=== PATIENT | male | born 1975 | race Caucasian/White ===

== ENCOUNTER 2019-01-01 13:49 | Inpatient (IN) | payer BC ==
--- NOTE | 2019-01-01 15:53 | RAD ---
Date of service: 01/01/2019 HISTORY: Sepsis Patient COMPARISON: No prior. FINDINGS: LUNGS: No active pulmonary disease. PLEURA: No significant pleural effusion identified, no pneumothorax apparent. CARDIOVASCULAR: No aortic atherosclerotic calcification present. Normal cardiac size. No pulmonary vascular congestion. OSSEOUS STRUCTURES: No significant abnormalities. VISUALIZED UPPER ABDOMEN: Normal. OTHER FINDINGS: None. IMPRESSION: No active disease.
[2019-01-01 16:04] LABS: BASO # 0.1 K/uL (0.0-0.2); BASO % 0.8 % (0.0-2.0); EOS % 0.1 % (0.0-4.0); HEMOGLOBIN 13.5 g/dL (12.0-18.0); LYMPH # 1.3 K/uL (1.0-4.3); MEAN CELL VOLUME 78.8 fl (80.0-94.0); MEAN CORPUSCULAR HEMOGLOBIN 25.4 pg (27.0-31.0); MEAN CORPUSCULAR HGB CONC 32.3 g/dL (33.0-37.0); MEAN PLATELET VOLUME 9.7 fl (7.2-11.7); MONO # 0.8 K/uL (0.0-0.8); MONO % 9.9 % (0.0-10.0); NEUT # 5.7 K/uL (1.8-7.0); NEUT % 72.2 % (50.0-75.0); NRBC % 0.3 % (0.0-0.0); RBC 5.32 Mil/uL (4.40-5.90); RED CELL DISTRIBUTION WIDTH 13.5 % (11.5-14.5); WHITE BLOOD COUNT 7.9 K/uL (4.8-10.8)
[2019-01-01 16:22] LABS: VENOUS BLOOD GAS BASE EXCESS 0.2 mmol/L (0.0-2.0); VENOUS BLOOD GAS PCO2 45 mmHg (40-60); VENOUS BLOOD GAS PO2 20 mm/Hg (30-55); VENOUS BLOOD PH 7.37 (7.32-7.43)
[2019-01-01 16:22] LABS: ALB/GLOB RATIO 0.9 (1.0-2.1); ALBUMIN 3.8 g/dL (3.5-5.0); ALT/SGPT 41 U/L (21-72); AST/SGOT 42 U/L (17-59); BLOOD UREA NITROGEN 17 mg/dl (9-20); GFR NON-AFRICAN AMERICAN > 60
[2019-01-01] MEDS ORDERED: cefTRIAXone (Rocephin) 1 gm Inj ONE (16:24)
[2019-01-01] MEDS ORDERED: Sodium Chloride 0.9% 1,000 ML IV STA ×2 (16:31→18:10)
[2019-01-01 16:32] LABS: INR 1.2
[2019-01-01 16:34] LABS: PARTIAL THROMBOPLASTIN TIME 33.4 Seconds (25.6-37.1)
--- NOTE | 2019-01-01 17:18 | ED PDOC ---
HPI: Abdomen Time Seen by Provider: 01/01/19 14:36 Chief Complaint (Nursing): Chest Pain Chief Complaint (Provider): Right flank pain and fever History/Exam Limitations: no limitations Onset/Duration Of Symptoms: Days (x6) Current Symptoms Are (Timing): Still Present Associated Symptoms: Fever Additional Complaint(s): 43 year old male, with a past medical history of kidney stones, presents to the ED with right flank pain and fever since Friday. Patient went to [facility] and found to have a kidney stone and possible UTI. Patient was discharged but developed a fever and felt worse. He had gone back to [facility] where they repeated tests and sent him home with the same diagnosis. Patient was also found to have elevated glucose levels and was started on Ibuprofen, Metformin, and Flomax. Patient did not improve so he went to Dr. Abdi who advised him to come to the ER. Patient now reports generalized malaise, fatigue, persistent right flank pain, fever, nausea, and poor appetite. PMD: Ashwin Colon Past Medical History Reviewed: Historical Data, Nursing Documentation, Vital Signs Vital Signs: Last Vital Signs Temp 102.9 F H 01/01/19 16:34 Pulse 116 H 01/01/19 16:19 Resp 12 01/01/19 16:19 BP 122/69 01/01/19 14:15 Pulse Ox 96 01/01/19 16:19 - Medical History PMH: Kidney Stones - Surgical History Surgical History: No Surg Hx - Family History Family History: States: Unknown Family Hx - Social History Current smoker - smoking cessation education provided: No - Home Medications Home Medications: Ambulatory Orders Medication Instructions Recorded RX: Ibuprofen [Motrin Tab] 800 mg PO Q8 PRN 01/01/19 RX: metFORMIN [glucOPHAGE] 500 mg PO BID 01/01/19 Tamsulosin [Flomax] 0.4 mg PO DAILY 01/01/19 - Allergies Allergies/Adverse Reactions: Allergies Allergy/AdvReac Type Severity Reaction Status Date / Time No Known Allergies Allergy Verified 01/01/19 14:14 Review of Systems ROS Statement: Except As Marked, All Systems Reviewed And Found Negative Constitutional: Positive for: Fever, Weakness, Malaise Gastrointestinal: Positive for: Nausea, Abdominal Pain (right flank pain) Physical Exam - Reviewed Nursing Documentation Reviewed: Yes Vital Signs Reviewed: Yes - Physical Exam Appears: Positive for: In Acute Distress (Tired appearing) Head Exam: Positive for: ATRAUMATIC, NORMOCEPHALIC Skin: Positive for: Warm, Diaphoresis Eye Exam: Positive for: EOMI, PERRL ENT: Positive for: Other (Tacky mucous membranes) Neck: Positive for: Painless ROM, Supple Cardiovascular/Chest: Positive for: Regular Rate, Rhythm (Regular rhythm), Tachycardia Respiratory: Positive for: Normal Breath Sounds, Respiratory Distress (tachypna). Negative for: Rales, Rhonchi, Wheezing Gastrointestinal/Abdominal: Positive for: Normal Exam, Soft. Negative for: Tenderness Back: Positive for: R CVA Tenderness. Negative for: Vertebral Tenderness Extremity: Positive for: Normal ROM. Negative for: Deformity Lymphatic: Negative for: Adenopathy Neurologic/Psych: Positive for: Alert. Negative for: Motor/Sensory Deficits Comments: Febrile - Laboratory Results Result Diagrams: 01/02/19 12:13 01/02/19 05:30 Lab Results: pO2 20 mm/Hg (30-55) L 01/01/19 15:27 VBG pH 7.37 (7.32-7.43) 01/01/19 15:27 VBG pCO2 45 mmHg (40-60) 01/01/19 15:27 VBG HCO3 23.5 mmol/L 01/01/19 15:27 VBG Total CO2 27.4 mmol/L (22-28) 01/01/19 15:27 VBG O2 Sat (Calc) 51.3 % (40-65) 01/01/19 15:27 VBG Base Excess 0.2 mmol/L (0.0-2.0) 01/01/19 15:27 VBG Potassium 3.9 mmol/L (3.6-5.2) 01/01/19 15:27 Sodium 131.0 mmol/L (132-148) L 01/01/19 15:27 Chloride 98.0 mmol/L (98-107) 01/01/19 15:27 Glucose 300 mg/dL (75-110) H 01/01/19 15:27 Lactate 1.3 mmol/L (0.7-2.1) 01/01/19 15:27 FiO2 21.0 % 01/01/19 15:27 PT 14.0 Seconds (9.8-13.1) H 01/01/19 15:40 INR 1.2 01/01/19 15:40 APTT 33.4 Seconds (25.6-37.1) 01/01/19 15:40 Total Bilirubin 0.6 mg/dl (0.2-1.3) 01/01/19 15:40 AST 42 U/L (17-59) 01/01/19 15:40 ALT 41 U/L (21-72) 01/01/19 15:40 Alkaline Phosphatase 114 U/L (38-126) 01/01/19 15:40 Total Protein 7.8 G/DL (6.3-8.2) 01/01/19 15:40 Albumin 3.8 g/dL (3.5-5.0) 01/01/19 15:40 Globulin 4.0 gm/dL (2.2-3.9) H 01/01/19 15:40 Albumin/Globulin Ratio 0.9 (1.0-2.1) L 01/01/19 15:40 - ECG O2 Sat by Pulse Oximetry: 96 (RA) Pulse Ox Interpretation: Normal Medical Decision Making Medical Decision Making: Initial Impression: pyelonephritis, kidney stones, and sepsis Initial Plan: --VBG --ECG --CMP --Magnesium stat --Phosphorous stat --CBC --PTT --Prothrombin time --Sodium chloride 1000mL IV --Rocephin 1gm IV --Toradol 15mg IV --Tylenol 975mg PO --Blood culture --Urine culture --Urinalysis Reviewed papers from [facility] visit. Patient had right hydronephrosis on US and findings of UTI. Labs with no significant abnormalities. However, due to tachycardia and fever, pt to be hospitalized for sepsis. SADIQ Abdi PMD. Requests Ddimer and Jose for Urology and ID consult. Ddimer elevated CTA ordered Name: LEVI ARRINGTON Exam Date: Jan 01, 2019 8:25:05 PM EST Modality Type: CT\SR Description: CTA CHEST Gender: M Laterality: Not applicable : 75 Referring Physician: Emergency Room direct number EXAM: CTA Chest with Intravenous Contrast for Pulmonary Embolism CLINICAL HISTORY: SOB r/o PE TECHNIQUE: Axial CTA images of the chest with intravenous contrast using a pulmonary embolism protocol. Reconstructed images were created and reviewed. 359.50 mGy-cm CONTRAST: With; [id number] was administered without incident. COMPARISON: None provided. FINDINGS: PULMONARY ARTERIES No evidence of central or segmental pulmonary embolism is seen. AORTA There is no evidence for aneurysm or dissection of the thoracic aorta. LUNGS Subtle airspace opacity is seen in the posterior right mid-lower thorax thought consistent with pneumonic consolidation. PLEURAL SPACES No pneumothorax evident. No pleural effusions. HEART Normal heart size. No pericardial effusion. LYMPH NODES No lymphadenopathy is evident. BONES No focal osseous abnormality or acute fracture. UPPER ABDOMEN Images of the upper abdomen demonstrate marked hepatomegaly. The liver measured approximately 24.7 cm in the midclavicular line. There is also splenomegaly identified. The spleen measured 14.7 x 5.7 cm in longitudinal and transverse dimensions respectively. Portions of the visualized upper right kidney appear to demonstrate some hydronephrosis. Further renal evaluation could be considered. IMPRESSION: 1. No identification of PE. 2. Pneumonic consolidation in the posterior mid-lower right thorax. 3. Possible right hydronephrosis. Further renal evaluation could be considered. 4. Marked hepatomegaly. Measurement is given above. 5. Splenomegaly. Measurement is given above. Electronically signed on Jan 01, 2019 9:28:01 PM EST by: Damon Sanchez M.D., REBECA Certified By [employer] [facility] Fellowship Trained MRI and CT Specialist Scribe Attestation: Documented by Hari Hernandez acting as a scribe for Keisha Reeves MD. Provider Scribe Attestation: All medical record entries made by the Scribe were at my direction and personally dictated by me. I have reviewed the chart and agree that the record accurately reflects my personal performance of the history, physical exam, medical decision making, and the department course for this patient. I have also personally directed, reviewed, and agree with the discharge instructions and disposition. Disposition - Clinical Impression Clinical Impression: Sepsis, Renal colic on right side, Pyelonephritis - Disposition Disposition Time: 20:00 Condition: FAIR - Pt Status Changed To: Hospital Disposition Of: Inpatient - Admit Certification Admit to Inpatient:: After my assessment, the patient will require hospi talization for at least two midnights. This is because of the severity of symptoms shown, intensity of services needed, and/or the medical risk in this patient being treated as an outpatient. - POA Present On Arrival: Poor Glycemic Control
[2019-01-01 17:46] LABS: SQUAMOUS EPITHIAL < 1 /hpf (0-5); URINE BACTERIA RARE (<OCC); URINE BILIRUBIN NEGATIVE (NEGATIVE); URINE BLOOD MODERATE (NEGATIVE); URINE CLARITY CLEAR (Clear); URINE COLOR YELLOW (YELLOW); URINE GLUCOSE (UA) >=500 mg/dL (NEGATIVE); URINE LEUKOCYTE ESTERASE NEG Leu/uL (Negative); URINE PROTEIN 100 mg/dL (NEGATIVE); URINE UROBILINOGEN 0.2-1.0 mg/dL (0.2-1.0)
[2019-01-01] MEDS ORDERED: Iodixanol 320 MG/ML 100 ML BOTTLE IV ONE (19:08)
[2019-01-01] MEDS ORDERED: Sodium Chloride 0.9% 50 ML IV ONE (19:08)
[2019-01-01] MEDS ORDERED: Sodium Chloride 0.45% 1,000 ML IV SCH (22:45)
[2019-01-02 07:46] LABS: ALB/GLOB RATIO 0.9 (1.0-2.1); ALBUMIN 3.3 g/dL (3.5-5.0); ALT/SGPT 39 U/L (21-72); AST/SGOT 39 U/L (17-59); BLOOD UREA NITROGEN 17 mg/dl (9-20); CALCIUM 8.3 mg/dL (8.4-10.2); GFR NON-AFRICAN AMERICAN > 60; HDL CHOLESTEROL 15 MG/DL (30-70)
[2019-01-02 07:57] LABS: LDL CHOLESTEROL 84 mg/dL (0-129)
[2019-01-02] MEDS ORDERED: Enoxaparin 30 mg Syringe SC SCH (09:00)
[2019-01-02] MEDS: Enoxaparin 40 mg Syringe SC SCH (09:55)
--- NOTE | 2019-01-02 09:55 | CT ---
Date of service: 01/01/2019 PROCEDURE: CT Chest with contrast (Pulmonary Angiogram) HISTORY: SOB R/O PE COMPARISON: None available. TECHNIQUE: Axial computed tomography images were obtained of the chest in the pulmonary arterial phase of enhancement. Coronal and sagittal reformatted images were created and reviewed. Intravenous contrast dose: 99 mL Visipaque 320 Radiation dose: Total exam DLP = 359.5 mGy-cm. This CT exam was performed using one or more of the following dose reduction techniques: Automated exposure control, adjustment of the mA and/or kV according to patient size, and/or use of iterative reconstruction technique. FINDINGS: PULMONARY ARTERIES: Unremarkable. No pulmonary embolism. AORTA: No acute findings. No thoracic aortic aneurysm. No aortic atherosclerotic calcification or mural plaque present. LUNGS: Few scattered bilateral patchy infiltrates. PLEURAL SPACES: Unremarkable. No effusion or pneumothorax. HEART: Unremarkable. No cardiomegaly. No significant pericardial effusion. LYMPH NODES: No lymphadenopathy. BONES, CHEST WALL: Unremarkable. No fracture or destructive lesion OTHER FINDINGS: Partially imaged right hydronephrosis. IMPRESSION: Unremarkable CT pulmonary angiogram. No pulmonary embolus. Few scattered patchy bilateral infiltrates. Partially imaged right hydronephrosis. Renal ultrasound or CT scan of the abdomen and pelvis can be obtained for further evaluation as clinically warranted.
--- NOTE | 2019-01-02 11:27 | CP.PCM.CON ---
History of Present Illness - History of Present Illness History of Present Illness: This 43 year old male with nephrolithiasis presented to the emergency room with right sided abdominal pain, fever, hydronephrosis and hyperglycemia, He was initially seen at [facility] with nephrolithiasis and discharged with medication. He returned there with additional hyperglycemia and discharged with medications. He did not improve and was seen by Dr Abdi and sent to the emergency deprtment for further evaluation. He denies any cough or sputum, but CT chest did show an elevated hemidiaphragm with a patchy ground glass infiltrate and subsegmental basal atelectasis in the RLL. He has no prior pulmonary disease by history but is a cigertte smoker (1/2 PPD). Past Patient History - Past Medical History & Family History Past Medical History?: Yes Pertinent Family History: Diabetes, hypertension - Past Social History Smoking Status: Light Smoker < 10 Cigarettes Daily Chewing Tobacco Use: No Cigar Use: No Alcohol: Social Drugs: Denies Home Situation {Lives}: With Family - CARDIAC Hx Cardiac Disorders: No - PULMONARY Hx Respiratory Disorders: No - NEUROLOGICAL Hx Neurological Disorder: No - HEENT Hx HEENT Problems: No - RENAL Hx Chronic Kidney Disease: Yes Hx Kidney Stones: Yes - ENDOCRINE/METABOLIC Hx Diabetes Mellitus Type 2: Yes (recent dx) - HEMATOLOGICAL/ONCOLOGICAL Hx Blood Disorders: No - INTEGUMENTARY Hx Dermatological Problems: No - MUSCULOSKELETAL/RHEUMATOLOGICAL Hx Musculoskeletal Disorders: No Hx Falls: No - GASTROINTESTINAL Hx Gastrointestinal Disorders: No - GENITOURINARY/GYNECOLOGICAL Hx Genitourinary Disorders: No Other/Comment: Nephrolithiasis - PSYCHIATRIC Hx Psychophysiologic Disorder: No Hx Substance Use: No - SURGICAL HISTORY Hx Surgeries: No - ANESTHESIA Hx Anesthesia: No Hx Anesthesia Reactions: No Hx Malignant Hyperthermia: No Has any member of the family had a problem w/ anesthesia?: No Meds Allergies/Adverse Reactions: Allergies Allergy/AdvReac Type Severity Reaction Status Date / Time No Known Allergies Allergy Verified 01/01/19 14:14 - Medications Medications: Current Medications Acetaminophen (Tylenol 325mg Tab) 975 mg PO ONCE PRN PRN Reason: Fever >100.4 F Last Admin: 01/01/19 16:34 Dose: 975 mg Acetaminophen (Tylenol 325mg Tab) 650 mg PO Q6 PRN PRN Reason: Fever >100.4 F Last Admin: 01/02/19 01:34 Dose: 2 mg Enoxaparin Sodium (Lovenox) 40 mg SC DAILY [facility]; Protocol Last Admin: 01/02/19 09:55 Dose: 40 mg Glipizide (Glucotrol) 10 mg PO BIDAC [facility] Sodium Chloride (Sodium Chloride 0.45%) 1,000 mls @ 100 mls/hr IV .Q10H [facility] Stop: 01/04/19 17:00 Cefepime HCl 1 gm/ Sodium (Chloride) 100 mls @ 100 mls/hr IVPB Q12 [facility]; Protocol Insulin Detemir (Levemir) 14 units SC HS [facility] Insulin Human Lispro (Humalog) 0 units SC ACHS [facility]; Protocol Metformin HCl (Glucophage) 500 mg PO BIDWM [facility] Tramadol HCl (Ultram) 50 mg PO TID PRN PRN Reason: Pain, Mild (1-3) Physical Exam - Additional Findings Additional findings: Well nourished, well developed, in no acute distress, comfortably seated in a leelee-chair. Awake, well oriented, cooperative with exam. No dependant edema, no calf tenderness, no cyanosis, no rash or ecchymosis. No palpable lymphadenopathy. Pharynx is pink and moist w/o exudate. Neck is supple and trachea midline, no JVD. No dullness on chest percussion, equal expansion. Breath sounds are well heard bilaterally. No rales, rhonchi, wheezes or bronchial breath sounds. Heart sounds well heard, regular rhythm. Results - Vital Signs Recent Vital Signs: Last Vital Signs Temp 98.5 F 01/02/19 08:25 Pulse 116 H 01/02/19 08:25 Resp 20 01/02/19 08:25 BP 124/65 01/02/19 08:25 Pulse Ox 97 01/02/19 08:25 - Labs Result Diagrams: 01/02/19 12:13 01/03/19 05:30 Labs: Laboratory Results - last 24 hr 01/01/19 01/01/19 01/01/19 15:27 15:40 15:40 WBC 7.9 RBC 5.32 Hgb 13.5 Hct 41.9 MCV 78.8 L MCH 25.4 L MCHC 32.3 L RDW 13.5 Plt Count 187 MPV 9.7 Neut % (Auto) 72.2 Lymph % (Auto) 17.0 L [place] % (Auto) 9.9 Eos % (Auto) 0.1 Baso % (Auto) 0.8 Neut # (Auto) 5.7 Lymph # (Auto) 1.3 Trinity # (Auto) 0.8 Eos # (Auto) 0.0 Baso # (Auto) 0.1 PT INR APTT D-Dimer, Quantitative pO2 20 L VBG pH 7.37 VBG pCO2 45 VBG HCO3 23.5 VBG Total CO2 27.4 VBG O2 Sat (Calc) 51.3 VBG Base Excess 0.2 VBG Potassium 3.9 Sodium 131.0 L 132 Chloride 98.0 90 L Glucose 300 H Lactate 1.3 FiO2 21.0 Potassium 3.6 Carbon Dioxide 26 Anion Gap 20 BUN 17 Creatinine 0.9 Est GFR ( Amer) > 60 Est GFR (Non-Af Amer) > 60 POC Glucose (mg/dL) Random Glucose 291 H Calcium 9.0 Phosphorus 2.7 Magnesium 2.1 Total Bilirubin 0.6 AST 42 ALT 41 Alkaline Phosphatase 114 Total Protein 7.8 Albumin 3.8 Globulin 4.0 H Albumin/Globulin Ratio 0.9 L Triglycerides Cholesterol LDL Cholesterol Direct HDL Cholesterol TSH 3rd Generation Venous Blood Potassium 3.9 Urine Color Urine Clarity Urine pH Ur Specific [place] Urine Protein Urine Glucose (UA) Urine Ketones Urine Blood Urine Nitrate Urine Bilirubin Urine Urobilinogen Ur Leukocyte Esterase Urine RBC (Auto) Urine Microscopic WBC Ur Squamous Epith Cells Urine Bacteria 01/01/19 01/01/19 01/01/19 15:40 15:48 17:34 WBC RBC Hgb Hct MCV MCH MCHC RDW Plt Count MPV Neut % (Auto) Lymph % (Auto) Trinity % (Auto) Eos % (Auto) Baso % (Auto) Neut # (Auto) Lymph # (Auto) Trinity # (Auto) Eos # (Auto) Baso # (Auto) PT 14.0 H INR 1.2 APTT 33.4 D-Dimer, Quantitative pO2 VBG pH VBG pCO2 VBG HCO3 VBG Total CO2 VBG O2 Sat (Calc) VBG Base Excess VBG Potassium Sodium Chloride Glucose Lactate FiO2 Potassium Carbon Dioxide Anion Gap BUN Creatinine Est GFR ( Amer) Est GFR (Non-Af Amer) POC Glucose (mg/dL) 248 H Random Glucose Calcium Phosphorus Magnesium Total Bilirubin AST ALT Alkaline Phosphatase Total Protein Albumin Globulin Albumin/Globulin Ratio Triglycerides Cholesterol LDL Cholesterol Direct HDL Cholesterol TSH 3rd Generation Venous Blood Potassium Urine Color Yellow Urine Clarity Clear Urine pH 6.0 Ur Specific [place] 1.026 Urine Protein 100 Urine Glucose (UA) >=500 Urine Ketones 80 Urine Blood Moderate Urine Nitrate Negative Urine Bilirubin Negative Urine Urobilinogen 0.2-1.0 Ur Leukocyte Esterase Neg Urine RBC (Auto) 1 Urine Microscopic WBC 2 Ur Squamous Epith Cells < 1 Urine Bacteria Rare 01/01/19 01/01/19 01/01/19 18:43 23:56 23:57 WBC RBC Hgb Hct MCV MCH MCHC RDW Plt Count MPV Neut % (Auto) Lymph % (Auto) Trinity % (Auto) Eos % (Auto) Baso % (Auto) Neut # (Auto) Lymph # (Auto) [place] # (Auto) Eos # (Auto) Baso # (Auto) PT INR APTT D-Dimer, Quantitative 688 H pO2 VBG pH VBG pCO2 VBG HCO3 VBG Total CO2 VBG O2 Sat (Calc) VBG Base Excess VBG Potassium Sodium Chloride Glucose Lactate FiO2 Potassium Carbon Dioxide Anion Gap BUN Creatinine Est GFR ( Amer) Est GFR (Non-Af Amer) POC Glucose (mg/dL) 218 H Random Glucose Calcium Phosphorus Magnesium Total Bilirubin AST ALT Alkaline Phosphatase Total Protein Albumin Globulin Albumin/Globulin Ratio Triglycerides Cholesterol LDL Cholesterol Direct HDL Cholesterol TSH 3rd Generation 1.73 Venous Blood Potassium Urine Color Urine Clarity Urine pH Ur Specific [place] Urine Protein Urine Glucose (UA) Urine Ketones Urine Blood Urine Nitrate Urine Bilirubin Urine Urobilinogen Ur Leukocyte Esterase Urine RBC (Auto) Urine Microscopic WBC Ur Squamous Epith Cells Urine Bacteria 01/02/19 01/02/19 05:30 06:12 WBC RBC Hgb Hct MCV MCH MCHC RDW Plt Count MPV Neut % (Auto) Lymph % (Auto) [place] % (Auto) Eos % (Auto) Baso % (Auto) Neut # (Auto) Lymph # (Auto) [place] # (Auto) Eos # (Auto) Baso # (Auto) PT INR APTT D-Dimer, Quantitative pO2 VBG pH VBG pCO2 VBG HCO3 VBG Total CO2 VBG O2 Sat (Calc) VBG Base Excess VBG Potassium Sodium 135 Chloride 95 L Glucose Lactate FiO2 Potassium 3.6 Carbon Dioxide 25 Anion Gap 19 BUN 17 Creatinine 1.1 Est GFR ( Amer) > 60 Est GFR (Non-Af Amer) > 60 POC Glucose (mg/dL) 212 H Random Glucose 269 H Calcium 8.3 L Phosphorus Magnesium Total Bilirubin 0.4 AST 39 ALT 39 Alkaline Phosphatase 109 Total Protein 7.1 Albumin 3.3 L Globulin 3.8 Albumin/Globulin Ratio 0.9 L Triglycerides 502 H Cholesterol 184 LDL Cholesterol Direct 84 HDL Cholesterol 15 L TSH 3rd Generation Venous Blood Potassium Urine Color Urine Clarity Urine pH Ur Specific [place] Urine Protein Urine Glucose (UA) Urine Ketones Urine Blood Urine Nitrate Urine Bilirubin Urine Urobilinogen Ur Leukocyte Esterase Urine RBC (Auto) Urine Microscopic WBC Ur Squamous Epith Cells Urine Bacteria Assessment & Plan (1) Atelectasis Assessment and Plan: Subsegmental right basal collapse likely secondary to elevated hemidiaphragm. Continue present antibiotic therapy, institute incentive spirometry. Encourage OOB with ambulation and deep breathing. Follow up imaging study as needed. Status: Acute Priority: High - Date & Time Date: 01/02/19 Time: 11:25
[2019-01-02] MEDS: Cefepime 1 GM in Sodium Chloride 0.9% 100 ML IVPB SCH ×2 (12:10→21:38)
[2019-01-02] MEDS: Insulin Lispro (humaLOG) 100 Units/ml Inj SC SCH ×3 (12:13→22:38)
[2019-01-02 12:20] LABS: HEMOGLOBIN 12.4 g/dL (12.0-18.0); MEAN CELL VOLUME 79.6 fl (80.0-94.0); MEAN CORPUSCULAR HEMOGLOBIN 25.3 pg (27.0-31.0); MEAN CORPUSCULAR HGB CONC 31.8 g/dL (33.0-37.0); RBC 4.89 Mil/uL (4.40-5.90); RED CELL DISTRIBUTION WIDTH 13.6 % (11.5-14.5); WHITE BLOOD COUNT 7.5 K/uL (4.8-10.8)
--- NOTE | 2019-01-02 16:25 | CON ---
DATE: 01/02/2019 LOCATION: Room 657. SUBJECTIVE: This is a 43-year-old male with known history of nephrolithiasis, presenting here with fever and severe right flank pain and a possible UTI and is now being referred for endocrine evaluation also because of recent onset of uncontrolled type 2 diabetes. PAST MEDICAL HISTORY: History of nephrolithiasis with previous bouts of renal colic, had a recent diagnosis of type 2 diabetes a week ago at the [facility]3] and was sent home from the emergency room on the prescription of metformin given as 500 mg b.i.d. FAMILY HISTORY: Positive for diabetes, hypertension, smokes half a pack a day for some years now, has a supportive family otherwise. REVIEW OF SYSTEMS: Admits to fever, chills and rigors with generalized body weakness and easy fatigability and tiredness with suboptimal energy level. Also admits to episodic bouts of dizziness and lightheadedness, worse in the last few days prior to admission. No chest pains or palpitations but admits to episodic shortness of breath, especially on exertion. His oral intake has been variable with nausea, dyspepsia and vague upper abdominal pain, supervening right flank pain, worsening in intensity over the last week or so prior to admission and worse on the day of admission. He was seen twice at the [facility]3] Emergency Room and was sent home on the aforementioned medications. Also admits to episodic polyuria, nocturia and dysuria as noted. PHYSICAL EXAMINATION: GENERAL: An average-built overweight male, in no apparent distress. VITAL SIGNS: Blood pressure of 140/80, pulse of 110 beats per minute regular, respirations 20, temperature is 102.9. Height is 6 feet 2 inches. Weight is 210 pounds. HEENT: Head: Normocephalic. Eyes: Anicteric with pink conjunctivae. Funduscopy not possible at this time. Ears, nose and throat otherwise normal. NECK: Supple. Thyroid gland is normal in size. No carotid bruits or any cervical adenopathy. CARDIOPULMONARY: Some adynamic precordium. S1, S2 is rapid and regular. LUNGS: Clear to auscultation. ABDOMEN: Flat, soft with positive bowel sounds. EXTREMITIES: No peripheral edema. Pulses are +2 bilaterally. LABORATORY DATA: His chemistry showed initially a BUN of 17, sodium 132, potassium 3.6, chloride 90, CO2 of 26, glucose 291 and creatinine 0.9. His triglyceride levels are 502, cholesterol is 184, HDL of 15 and LDL of 184. TSH is 1.73. His calcium levels have ranged from 8.3 to 9 with an albumin level of 3.3. His glucose values have ranged from 218 to 248 mg/dL. ASSESSMENT: This is a 43-year-old male with uncontrolled and decompensated type 2 insulin-requiring diabetes presenting here with acute renal colic with possible underlying acute pyelonephritis on the background of known history of nephrolithiasis as noted. There is also recent onset of uncontrolled type 2 insulin-requiring diabetes as evaluated and seen initially at the [facility]3] a week ago as noted. PLAN OF MANAGEMENT: We will initiate a combination of basal insulin with Levemir given as 14 units subcu at bedtime daily to start tonight. We will titrate incrementally as indicated to optimize metabolic control. We will add oral hypoglycemic therapy with metformin given as 500 mg b.i.d. and glipizide at 10 mg b.i.d. before meals to start today as ordered. We will initiate the low-dose correction scale using Humalog insulin coverage scale as ordered. We will hold off prandial insulin for now and observe his glycemic fluctuations overnight as noted. A hemoglobin A1c will be done to confirm his prior glycemic control and serial chemistries will be obtained accordingly. In the meantime with the underlying nephrolithiasis would increase the IV hydration with normal saline to be running at 100 mL/hour as ordered. We will initiate diabetic education to include insulin self-administration and home glucose monitoring accordingly. We will follow. Rosenda Farr MD
[2019-01-02] MEDS: Sodium Chloride 0.45% 1,000 ML IV SCH ×2 (21:00→21:37)
--- NOTE | 2019-01-02 21:52 | CARD ---
APPROVED REPORT Date of service: 01/01/2019 EKG Measurement Heart [id number] <Conclusion> Sinus tachycardia Left axis deviation Abnormal ECG
[2019-01-02] MEDS ORDERED: Insulin Detemir 100 Units/ml Inj SC SCH (22:00)
--- NOTE | 2019-01-02 23:43 | CP.PCM.HP ---
History of Present Illness - History of Present Illness History of Present Illness: 43 yo NIDDM admitted for Nephrolithiasis/ Hydronephrosis and Pyelonephritis Present on Admission - Present on Admission Any Indicators Present on Admission: No Past Patient History - Past Medical History & Family History Past Medical History?: Yes - Past Social History Smoking Status: Never Smoked - CARDIAC Hx Cardiac Disorders: No - PULMONARY Hx Respiratory Disorders: No - NEUROLOGICAL Hx Neurological Disorder: No - HEENT Hx HEENT Problems: No - RENAL Hx Kidney Stones: Yes - ENDOCRINE/METABOLIC Hx Diabetes Mellitus Type 1: Yes - HEMATOLOGICAL/ONCOLOGICAL Hx Blood Disorders: No - INTEGUMENTARY Hx Dermatological Problems: No - MUSCULOSKELETAL/RHEUMATOLOGICAL Hx Musculoskeletal Disorders: No Hx Falls: No - GASTROINTESTINAL Hx Gastrointestinal Disorders: No - GENITOURINARY/GYNECOLOGICAL Hx Genitourinary Disorders: No - PSYCHIATRIC Hx Psychophysiologic Disorder: No Hx Substance Use: No - SURGICAL HISTORY Hx Surgeries: No - ANESTHESIA Hx Anesthesia: No Hx Anesthesia Reactions: No Hx Malignant Hyperthermia: No Has any member of the family had a problem w/ anesthesia?: No Meds Allergies/Adverse Reactions: Allergies Allergy/AdvReac Type Severity Reaction Status Date / Time No Known Allergies Allergy Verified 01/01/19 14:14 Physical Exam - Respiratory Exam Respiratory Exam: NORMAL BREATHING PATTERN - Cardiovascular Exam Cardiovascular Exam: REGULAR RHYTHM - GI/Abdominal Exam GI & Abdominal Exam: Normal Bowel Sounds Results - Vital Signs Recent Vital Signs: Last Vital Signs Temp 102.8 F H 01/02/19 23:28 Pulse 109 H 01/02/19 16:39 Resp 20 01/02/19 16:39 BP 130/87 01/02/19 16:39 Pulse Ox 95 01/02/19 16:39 - Labs Result Diagrams: 01/02/19 12:13 01/02/19 05:30 Labs: Laboratory Results - last 24 hr 01/01/19 01/01/19 01/02/19 23:56 23:57 05:30 WBC RBC Hgb Hct MCV MCH MCHC RDW Plt Count Sodium 135 Potassium 3.6 Chloride 95 L Carbon Dioxide 25 Anion Gap 19 BUN 17 Creatinine 1.1 Est GFR ( Amer) > 60 Est GFR (Non-Af Amer) > 60 POC Glucose (mg/dL) 218 H Random Glucose 269 H Calcium 8.3 L Total Bilirubin 0.4 AST 39 ALT 39 Alkaline Phosphatase 109 Total Protein 7.1 Albumin 3.3 L Globulin 3.8 Albumin/Globulin Ratio 0.9 L Triglycerides 502 H Cholesterol 184 LDL Cholesterol Direct 84 HDL Cholesterol 15 L TSH 3rd Generation 1.73 01/02/19 01/02/19 01/02/19 06:12 11:43 12:13 WBC 7.5 RBC 4.89 Hgb 12.4 Hct 38.9 MCV 79.6 L MCH 25.3 L MCHC 31.8 L RDW 13.6 Plt Count 208 Sodium Potassium Chloride Carbon Dioxide Anion Gap BUN Creatinine Est GFR ( Amer) Est GFR (Non-Af Amer) POC Glucose (mg/dL) 212 H 300 H Random Glucose Calcium Total Bilirubin AST ALT Alkaline Phosphatase Total Protein Albumin Globulin Albumin/Globulin Ratio Triglycerides Cholesterol LDL Cholesterol Direct HDL Cholesterol TSH 3rd Generation 01/02/19 01/02/19 16:17 21:28 WBC RBC Hgb Hct MCV MCH MCHC RDW Plt Count Sodium Potassium Chloride Carbon Dioxide Anion Gap BUN Creatinine Est GFR ( Amer) Est GFR (Non-Af Amer) POC Glucose (mg/dL) 317 H 240 H Random Glucose Calcium Total Bilirubin AST ALT Alkaline Phosphatase Total Protein Albumin Globulin Albumin/Globulin Ratio Triglycerides Cholesterol LDL Cholesterol Direct HDL Cholesterol TSH 3rd Generation Assessment & Plan - Assessment and Plan (Free Text) Assessment: Nephrolithiasis/ Hydronephrosis ?? Pyelonephritis IVF ABX strain urine Urology ID CT scan results from [facility] [place] Multiple calls to [facility] [place] D/W Urology NIDDM new onset Endo Nutritional SOB ?? CT scan ?? Pulmonary consult Hypertryglyceremia - Date & Time Date: 01/02/19 Time: 22:22
[2019-01-03] MEDS: Sodium Chloride 0.45% 1,000 ML IV SCH (06:00)
[2019-01-03 07:11] LABS: ALB/GLOB RATIO 0.9 (1.0-2.1); ALBUMIN 3.4 g/dL (3.5-5.0); ALT/SGPT 31 U/L (21-72); AST/SGOT 31 U/L (17-59); BLOOD UREA NITROGEN 12 mg/dl (9-20); CALCIUM 8.6 mg/dL (8.4-10.2); GFR NON-AFRICAN AMERICAN > 60
[2019-01-03] MEDS: Insulin Lispro (humaLOG) 100 Units/ml Inj SC SCH ×4 (08:00→21:51)
[2019-01-03] MEDS: Cefepime 1 GM in Sodium Chloride 0.9% 100 ML IVPB SCH ×2 (09:42→21:49)
[2019-01-03] MEDS: Enoxaparin 40 mg Syringe SC SCH (09:43)
--- NOTE | 2019-01-03 13:05 | CP.PCM.CON ---
History of Present Illness - History of Present Illness History of Present Illness: 43 year old male, with a past medical history of kidney stones, presents to the ED with right flank pain and fever x 1 week . Patient went to [facility] and found to have a kidney stone and possible UTI and was discharged on Ibuprofen, Metformin, and Flomax. After no improvement he returned to [facility] [place] but was sent home Due to persistent fever and pain he then went to his PMD , Dr. Abdi who advised him to come to the ER. Patient now reports generalized malaise, fatigue, persistent right flank pain, fever, nausea, and poor appetite. ID was consulted for antibiotic management for possible complicated UTI He was started on IV antibiotics empirically opending cultures Review of Systems - Review of Systems All systems: reviewed and no additional remarkable complaints except - Constitutional Constitutional: As Per HPI, Chills, Fever, Malaise - EENT Eyes: absent: As Per HPI, Blind Spots, Blurred Vision, Change in Vision, Decreased Night Vision, Diplopia, Discharge, Dry Eye, Exophthalmos, Floaters, Irritation, Itchy Eyes, Loss of Peripheral Vision, Pain, Photophobia, Requires Corrective Lenses, Sees Flashes, Spots in Vision, Tunnel Vision, Other Visual Disturbances, Loss of Vision, Other Ears: absent: As Per HPI, Decreased Hearing, Ear Discharge, Ear Pain, Tinnitus, Abnormal Hearing, Disequilibrium, Dizziness, Other Nose/Mouth/Throat: absent: As Per HPI, Epistaxis, Nasal Congestion, Nasal Discharge, Nasal Obstruction, Nasal Trauma, Nose Pain, Post Nasal Drip, Sinus Pain, Sinus Pressure, Bleeding Gums, Change in Voice, Dental Pain, Dry Mouth, Dysphagia, Halitosis, Hoarsness, Lip Swelling, Mouth Lesions, Mouth Pain, Odynophagia, Sore Throat, Throat Swelling, Tongue Swelling, Facial Pain, Neck Pain, Neck Mass, Other - Cardiovascular Cardiovascular: absent: As Per HPI, Acrocyanosis, Chest Pain, Chest Pain at Rest, Chest Pain with Activity, Claudication, Diaphoresis, Dyspnea, Dyspnea on Exertion, Edema, Irregular Heart Rhythm, Pain Radiating to Arm/Neck/Jaw, Leg Edema, Leg Ulcers, Lightheadedness, Orthopnea, Palpitations, Paroxysmal Nocturnal Dyspnea, Pedal Edema, Radiating Pain, Rapid Heart Rate, Slow Heart Rate, Syncope, Other - Respiratory Respiratory: absent: As Per HPI, Cough, Dyspnea, Hemoptysis, Dyspnea on Exert ion, Wheezing, Snoring, Stridor, Pain on Inspiration, Chest Congestion, Excessive Mucous Production, Change in Mucous Color, Pain with Coughing, Other - Gastrointestinal Gastrointestinal: absent: As Per HPI, Abdominal Pain, Belching, Bloating, Change in Bowel Habits, Change in Stool Character, Coffee Ground Emesis, Constipation, Cramping, Diarrhea, Dyspepsia, Dysphagia, Early Satiety, Excessive Flatus, Fecal Incontinence, Heartburn, Hematemesis, Hematochezia, Loose Stools, Melena, Nausea, Odynophagia, Temesmus, Vomiting, Other - Genitourinary Genitourinary: As Per HPI - Musculoskeletal Musculoskeletal: absent: As Per HPI, Abnormal Gait, Arthralgias, Atrophy, Back Pain, Deformity, Joint Swelling, Limited Range of Motion, Loss of Height, Muscle Cramps, Muscle Weakness, Myalgias, Neck Pain, Numbness, Radiating Pain into Limb, Stiffness, Tingling, Other - Integumentary Integumentary: absent: As Per HPI, Acne, Alopecia, Bleeding Lesions, Change in Hair, Change in Nails, Change in Pigmentation, Changing Lesions, Dry Skin, Erythema, Furuncle, Hirsutism, Lesions, New Lesions, Non-Healing Lesions, Photosensitivity, Pruritus, Rash, Skin Pain, Skin Ulcer, Sores, Striae, Swelling, Unusual Bruising, Wounds, Jaundice, Other - Neurological Neurological: absent: As Per HPI, Abnormal Gait, Abnormal Hearing, Abnormal Movements, Abnormal Speech, Behavioral Changes, Burning Sensations, Confusion, Convulsions, Disequilibrium, Dizziness, Numbness, Focal Weakness, Frequent Falls, Headaches, Lack of Coordination, Loss of Vision, Memory Loss, Paresthesias, Radicular Pain, Restless Legs, Sensory Deficit, Syncope, Tingling, Tremor, Vertigo, Weakness, Other Visual Disturbances, Other - Psychiatric Psychiatric: absent: As Per HPI, Abnormal Sleep Pattern, Anhedonia, Anxiety, Auditory Hallucinations, Behavioral Changes, Change in Appetite, Change in Libido, Confusion, Depression, Difficulty Concentrating, Hallucinations, Homicidal Ideation, Hopelessness, Irritability, Memory Loss, Mood Swings, Panic Attacks, Paranoia, Suicidal Ideation, Visual Hallucinations, Tactile Hallucinations, Other - Endocrine Endocrine: absent: As Per HPI, Change in Body Appearance, Change in Libido, Cold Intolorance, Deepening of Voice, Excessive Sweating, Fatigue, Flushing, Heat Intolorance, Increase in Ring/Shoe/Hat Size, Palpitations, Polydipsia, Polyphagia, Polyuria, Other - Hematologic/Lymphatic Hematologic: absent: As Per HPI, Easy Bleeding, Easy Bruising, Lymphadenopathy, Other Past Patient History - Past Medical History & Family History Past Medical History?: Yes - Past Social History Smoking Status: Light Smoker < 10 Cigarettes Daily Chewing Tobacco Use: No Cigar Use: No Alcohol: Social Drugs: Denies Home Situation {Lives}: With Family - CARDIAC Hx Cardiac Disorders: No - PULMONARY Hx Respiratory Disorders: No - NEUROLOGICAL Hx Neurological Disorder: No - HEENT Hx HEENT Problems: No - RENAL Hx Chronic Kidney Disease: Yes Hx Kidney Stones: Yes - ENDOCRINE/METABOLIC Hx Diabetes Mellitus Type 2: Yes (recent dx) - HEMATOLOGICAL/ONCOLOGICAL Hx Blood Disorders: No - INTEGUMENTARY Hx Dermatological Problems: No - MUSCULOSKELETAL/RHEUMATOLOGICAL Hx Musculoskeletal Disorders: No Hx Falls: No - GASTROINTESTINAL Hx Gastrointestinal Disorders: No - GENITOURINARY/GYNECOLOGICAL Hx Genitourinary Disorders: No Other/Comment: Nephrolithiasis - PSYCHIATRIC Hx Psychophysiologic Disorder: No Hx Substance Use: No - SURGICAL HISTORY Hx Surgeries: No - ANESTHESIA Hx Anesthesia: No Hx Anesthesia Reactions: No Hx Malignant Hyperthermia: No Has any member of the family had a problem w/ anesthesia?: No Meds Allergies/Adverse Reactions: Allergies Allergy/AdvReac Type Severity Reaction Status Date / Time No Known Allergies Allergy Verified 01/01/19 14:14 - Medications Medications: Current Medications Acetaminophen (Tylenol 325mg Tab) 975 mg PO ONCE PRN PRN Reason: Fever >100.4 F Last Admin: 01/01/19 16:34 Dose: 975 mg Acetaminophen (Tylenol 325mg Tab) 650 mg PO Q6 PRN PRN Reason: Fever >100.4 F Last Admin: 01/02/19 23:28 Dose: 650 mg Enoxaparin Sodium (Lovenox) 40 mg SC DAILY HAYDEN; Protocol Last Admin: 01/03/19 09:43 Dose: 40 mg Glipizide (Glucotrol) 10 mg PO BIDAC HAYDEN Last Admin: 01/03/19 09:45 Dose: 10 mg Sodium Chloride (Sodium Chloride 0.45%) 1,000 mls @ 100 mls/hr IV .Q10H AHYDEN Stop: 01/04/19 17:00 Last Admin: 01/03/19 06:00 Dose: Not Given Cefepime HCl 1 gm/ Sodium (Chloride) 100 mls @ 100 mls/hr IVPB Q12 HAYDEN; Pr otocol Last Admin: 01/03/19 09:42 Dose: 100 mls/hr Insulin Detemir (Levemir) 14 units SC HS HAYDEN Last Admin: 01/02/19 22:41 Dose: 14 units Insulin Human Lispro (Humalog) 0 units SC ACHS HAYDEN; Protocol Last Admin: 01/03/19 08:00 Dose: Not Given Metformin HCl (Glucophage) 500 mg PO BIDWM HAYDEN Last Admin: 01/03/19 09:46 Dose: 500 mg Tramadol HCl (Ultram) 50 mg PO TID PRN PRN Reason: Pain, Mild (1-3) Physical Exam - Constitutional Appears: Non-toxic, No Acute Distress, Chronically Ill - Head Exam Head Exam: ATRAUMATIC, NORMAL INSPECTION, NORMOCEPHALIC - Eye Exam Eye Exam: PERRL. absent: Scleral icterus - ENT Exam ENT Exam: Mucous Membranes Dry, Normal External Ear Exam, Normal Oropharynx - Neck Exam Neck exam: Negative for: Lymphadenopathy - Respiratory Exam Respiratory Exam: Decreased Breath Sounds, Prolonged Expiratory Phase, Rhonchi - Cardiovascular Exam Cardiovascular Exam: REGULAR RHYTHM, +S1, +S2 - GI/Abdominal Exam GI & Abdominal Exam: Diminished Bowel Sounds, Distended, Guarding, Soft. absent: Rebound, Rigid, Tenderness - Rectal Exam Rectal Exam: Deferred - Exam Exam: NORMAL INSPECTION - Extremities Exam Extremities exam: Positive for: pedal pulses present. Negative for: calf tenderness, pedal edema, tenderness - Back Exam Back exam: CVA tenderness (R). absent: CVA tenderness (L), paraspinal tenderness - Neurological Exam Neurological exam: Alert, CN II-XII Intact, Oriented x3, Reflexes Normal - Psychiatric Exam Psychiatric exam: Normal Mood - Skin Skin Exam: Dry, Intact Results - Vital Signs Recent Vital Signs: Last Vital Signs Temp 99.7 F H 01/03/19 08:38 Pulse 99 H 01/03/19 08:38 Resp 20 01/03/19 08:38 BP 112/76 01/03/19 08:38 Pulse Ox 97 01/03/19 08:38 - Labs Result Diagrams: 01/02/19 12:13 01/03/19 05:30 Labs: Laboratory Results - last 24 hr 01/02/19 01/02/19 01/03/19 16:17 21:28 05:27 Sodium Potassium Chloride Carbon Dioxide Anion Gap BUN Creatinine Est GFR ( Amer) Est GFR (Non-Af Amer) POC Glucose (mg/dL) 317 H 240 H 215 H Random Glucose Hemoglobin A1c Calcium Phosphorus Magnesium Total Bilirubin AST ALT Alkaline Phosphatase Total Protein Albumin Globulin Albumin/Globulin Ratio 01/03/19 01/03/19 01/03/19 05:30 05:30 11:37 Sodium 130 L Potassium 3.3 L Chloride 92 L Carbon Dioxide 27 Anion Gap 14 BUN 12 Creatinine 0.9 Est GFR ( Amer) > 60 Est GFR (Non-Af Amer) > 60 POC Glucose (mg/dL) 312 H Random Glucose 240 H Hemoglobin A1c 13.1 H Calcium 8.6 Phosphorus 3.2 Magnesium 2.1 Total Bilirubin 0.6 AST 31 ALT 31 Alkaline Phosphatase 96 Total Protein 7.3 Albumin 3.4 L Globulin 3.9 Albumin/Globulin Ratio 0.9 L Assessment & Plan (1) Atelectasis Status: Acute Priority: High (2) Pyelonephritis Status: Acute (3) Renal colic on right side Status: Acute (4) Sepsis Status: Acute - Assessment and Plan (Free Text) Assessment: 43 year old male, with a past medical history of kidney stones, presents to the ED with right flank pain and fever x 1 week . Patient went to [facility] and found to have a kidney stone and possible UTI and was discharged on Ibuprofen, Metformin, and Flomax. After no improvement he returned to [facility] [place] but was sent home Due to persistent fever and pain he then went to his PMD , Dr. Abdi who advised him to come to the ER. Patient now reports generalized malaise, fatigue, persistent right flank pain, fever, nausea, and poor appetite. ID was consulted for antibiotic management for possible complicated UTI He was started on IV antibiotics empirically opending cultures
--- NOTE | 2019-01-03 13:10 | CP.PCM.CON ---
History of Present Illness - History of Present Illness History of Present Illness: - History of Present Illness History of Present Illness: 43 year old male, with a past medical history of kidney stones, presents to the ED with right flank pain and fever x 1 week . Patient went to [facility] and found to have a kidney stone and possible UTI and was discharged on Ibuprofen, Metformin, and Flomax. After no improvement he returned to [facility] but was sent home Due to persistent fever and pain he then went to his PMD , Dr. Abdi who advised him to come to the ER. Patient now reports generalized malaise, fatigue, persistent right flank pain, fever, nausea, and poor appetite. ID was consulted for antibiotic management for possible complicated UTI He was started on IV antibiotics empirically opending cultures Review of Systems - Review of Systems All systems: reviewed and no additional remarkable complaints except - Constitutional Constitutional: As Per HPI, Chills, Fever, Malaise - EENT Eyes: absent: As Per HPI, Blind Spots, Blurred Vision, Change in Vision, Decreased Night Vision, Diplopia, Discharge, Dry Eye, Exophthalmos, Floaters, Irritation, Itchy Eyes, Loss of Peripheral Vision, Pain, Photophobia, Requires Corrective Lenses, Sees Flashes, Spots in Vision, Tunnel Vision, Other Visual Disturbances, Loss of Vision, Other Ears: absent: As Per HPI, Decreased Hearing, Ear Discharge, Ear Pain, Tinnitus, Abnormal Hearing, Disequilibrium, Dizziness, Other Nose/Mouth/Throat: absent: As Per HPI, Epistaxis, Nasal Congestion, Nasal Discharge, Nasal Obstruction, Nasal Trauma, Nose Pain, Post Nasal Drip, Sinus Pain, Sinus Pressure, Bleeding Gums, Change in Voice, Dental Pain, Dry Mouth, Dysphagia, Halitosis, Hoarsness, Lip Swelling, Mouth Lesions, Mouth Pain, Odynophagia, Sore Throat, Throat Swelling, Tongue Swelling, Facial Pain, Neck Pain, Neck Mass, Other - Cardiovascular Cardiovascular: absent: As Per HPI, Acrocyanosis, Chest Pain, Chest Pain at Rest, Chest Pain with Activity, Claudication, Diaphoresis, Dyspnea, Dyspnea on Exertion, Edema, Irregular Heart Rhythm, Pain Radiating to Arm/Neck/Jaw, Leg Nabeel ma, Leg Ulcers, Lightheadedness, Orthopnea, Palpitations, Paroxysmal Nocturnal Dyspnea, Pedal Edema, Radiating Pain, Rapid Heart Rate, Slow Heart Rate, Syncope, Other - Respiratory Respiratory: absent: As Per HPI, Cough, Dyspnea, Hemoptysis, Dyspnea on Exertion , Wheezing, Snoring, Stridor, Pain on Inspiration, Chest Congestion, Excessive Mucous Production, Change in Mucous Color, Pain with Coughing, Other - Gastrointestinal Gastrointestinal: absent: As Per HPI, Abdominal Pain, Belching, Bloating, Change in Bowel Habits, Change in Stool Character, Coffee Ground Emesis, Constipation, Cramping, Diarrhea, Dyspepsia, Dysphagia, Early Satiety, Excessive Flatus, Fecal Incontinence, Heartburn, Hematemesis, Hematochezia, Loose Stools, Melena, Nausea, Odynophagia, Temesmus, Vomiting, Other - Genitourinary Genitourinary: As Per HPI - Musculoskeletal Musculoskeletal: absent: As Per HPI, Abnormal Gait, Arthralgias, Atrophy, Back Pain, Deformity, Joint Swelling, Limited Range of Motion, Loss of Height, Muscle Cramps, Muscle Weakness, Myalgias, Neck Pain, Numbness, Radiating Pain into Limb, Stiffness, Tingling, Other - Integumentary Integumentary: absent: As Per HPI, Acne, Alopecia, Bleeding Lesions, Change in Hair, Change in Nails, Change in Pigmentation, Changing Lesions, Dry Skin, Erythema, Furuncle, Hirsutism, Lesions, New Lesions, Non-Healing Lesions, Photosensitivity, Pruritus, Rash, Skin Pain, Skin Ulcer, Sores, Striae, Swelling, Unusual Bruising, Wounds, Jaundice, Other - Neurological Neurological: absent: As Per HPI, Abnormal Gait, Abnormal Hearing, Abnormal Movements, Abnormal Speech, Behavioral Changes, Burning Sensations, Confusion, Convulsions, Disequilibrium, Dizziness, Numbness, Focal Weakness, Frequent Falls, Headaches, Lack of Coordination, Loss of Vision, Memory Loss, Paresthesias, Radicular Pain, Restless Legs, Sensory Deficit, Syncope, Tingling, Tremor, Vertigo, Weakness, Other Visual Disturbances, Other - Psychiatric Psychiatric: absent: As Per HPI, Abnormal Sleep Pattern, Anhedonia, Anxiety, Auditory Hallucinations, Behavioral Changes, Change in Appetite, Change in Libido, Confusion, Depression, Difficulty Concentrating, Hallucinations, Homicidal Ideation, Hopelessness, Irritability, Memory Loss, Mood Swings, Panic Attacks, Paranoia, Suicidal Ideation, Visual Hallucinations, Tactile Hallucinations, Other - Endocrine Endocrine: absent: As Per HPI, Change in Body Appearance, Change in Libido, Cold Intolorance, Deepening of Voice, Excessive Sweating, Fatigue, Flushing, Heat Intolorance, Increase in Ring/Shoe/Hat Size, Palpitations, Polydipsia, Polyphagia, Polyuria, Other - Hematologic/Lymphatic Hematologic: absent: As Per HPI, Easy Bleeding, Easy Bruising, Lymphadenopathy, Other Past Patient History - Past Medical History & Family History Past Medical History?: Yes - Past Social History Smoking Status: Light Smoker < 10 Cigarettes Daily Chewing Tobacco Use: No Cigar Use: No Alcohol: Social Drugs: Denies Home Situation {Lives}: With Family - CARDIAC Hx Cardiac Disorders: No - PULMONARY Hx Respiratory Disorders: No - NEUROLOGICAL Hx Neurological Disorder: No - HEENT Hx HEENT Problems: No - RENAL Hx Chronic Kidney Disease: Yes Hx Kidney Stones: Yes - ENDOCRINE/METABOLIC Hx Diabetes Mellitus Type 2: Yes (recent dx) - HEMATOLOGICAL/ONCOLOGICAL Hx Blood Disorders: No - INTEGUMENTARY Hx Dermatological Problems: No - MUSCULOSKELETAL/RHEUMATOLOGICAL Hx Musculoskeletal Disorders: No Hx Falls: No - GASTROINTESTINAL Hx Gastrointestinal Disorders: No - GENITOURINARY/GYNECOLOGICAL Hx Genitourinary Disorders: No Other/Comment: Nephrolithiasis - PSYCHIATRIC Hx Psychophysiologic Disorder: No Hx Substance Use: No - SURGICAL HISTORY Hx Surgeries: No - ANESTHESIA Hx Anesthesia: No Hx Anesthesia Reactions: No Hx Malignant Hyperthermia: No Has any member of the family had a problem w/ anesthesia?: No Meds Allergies/Adverse Reactions: Allergies Allergy/AdvReac Type Severity Reaction Status Date / Time No Known Allergies Allergy Verified 01/01/19 14:14 - Medications Medications: Current Medications Acetaminophen (Tylenol 325mg Tab) 975 mg PO ONCE PRN PRN Reason: Fever >100.4 F Last Admin: 01/01/19 16:34 Dose: 975 mg Acetaminophen (Tylenol 325mg Tab) 650 mg PO Q6 PRN PRN Reason: Fever >100.4 F Last Admin: 01/02/19 23:28 Dose: 650 mg Enoxaparin Sodium (Lovenox) 40 mg SC DAILY [facility]; Protocol Last Admin: 01/03/19 09:43 Dose: 40 mg Glipizide (Glucotrol) 10 mg PO BIDAC [facility] Last Admin: 01/03/19 09:45 Dose: 10 mg Sodium Chloride (Sodium Chloride 0.45%) 1,000 mls @ 100 mls/hr IV .Q10H [facility] Stop: 01/04/19 17:00 Last Admin: 01/03/19 06:00 Dose: Not Given Cefepime HCl 1 gm/ Sodium (Chloride) 100 mls @ 100 mls/hr IVPB Q12 [facility]; Drea col Last Admin: 01/03/19 09:42 Dose: 100 mls/hr Insulin Detemir (Levemir) 14 units SC HS [facility] Last Admin: 01/02/19 22:41 Dose: 14 units Insulin Human Lispro (Humalog) 0 units SC ACHS [facility]; Protocol Last Admin: 01/03/19 08:00 Dose: Not Given Metformin HCl (Glucophage) 500 mg PO BIDWM [facility] Last Admin: 01/03/19 09:46 Dose: 500 mg Tramadol HCl (Ultram) 50 mg PO TID PRN PRN Reason: Pain, Mild (1-3) Physical Exam - Constitutional Appears: Non-toxic, No Acute Distress, Chronically Ill - Head Exam Head Exam: ATRAUMATIC, NORMAL INSPECTION, NORMOCEPHALIC - Eye Exam Eye Exam: PERRL. absent: Scleral icterus - ENT Exam ENT Exam: Mucous Membranes Dry, Normal External Ear Exam, Normal Oropharynx - Neck Exam Neck exam: Negative for: Lymphadenopathy - Respiratory Exam Respiratory Exam: Decreased Breath Sounds, Prolonged Expiratory Phase, Rhonchi - Cardiovascular Exam Cardiovascular Exam: REGULAR RHYTHM, +S1, +S2 - GI/Abdominal Exam GI & Abdominal Exam: Diminished Bowel Sounds, Distended, Guarding, Soft. absent: Rebound, Rigid, Tenderness - Rectal Exam Rectal Exam: Deferred - Exam Exam: NORMAL INSPECTION - Extremities Exam Extremities exam: Positive for: pedal pulses present. Negative for: calf tenderness, pedal edema, tenderness - Back Exam Back exam: CVA tenderness (R). absent: CVA tenderness (L), paraspinal tenderness - Neurological Exam Neurological exam: Alert, CN II-XII Intact, Oriented x3, Reflexes Normal - Psychiatric Exam Psychiatric exam: Normal Mood - Skin Skin Exam: Dry, Intact Results - Vital Signs Recent Vital Signs: Last Vital Signs Temp 99.7 F H 01/03/19 08:38 Pulse 99 H 01/03/19 08:38 Resp 20 01/03/19 08:38 BP 112/76 01/03/19 08:38 Pulse Ox 97 01/03/19 08:38 - Labs Result Diagrams: 01/02/19 12:13 01/03/19 05:30 Labs: Laboratory Results - last 24 hr 01/02/19 01/02/19 01/03/19 16:17 21:28 05:27 Sodium Potassium Chloride Carbon Dioxide Anion Gap BUN Creatinine Est GFR ( Amer) Est GFR (Non-Af Amer) POC Glucose (mg/dL) 317 H 240 H 215 H Random Glucose Hemoglobin A1c Calcium Phosphorus Magnesium Total Bilirubin AST ALT Alkaline Phosphatase Total Protein Albumin Globulin Albumin/Globulin Ratio 01/03/19 01/03/19 01/03/19 05:30 05:30 11:37 Sodium 130 L Potassium 3.3 L Chloride 92 L Carbon Dioxide 27 Anion Gap 14 BUN 12 Creatinine 0.9 Est GFR ( Amer) > 60 Est GFR (Non-Af Amer) > 60 POC Glucose (mg/dL) 312 H Random Glucose 240 H Hemoglobin A1c 13.1 H Calcium 8.6 Phosphorus 3.2 Magnesium 2.1 Total Bilirubin 0.6 AST 31 ALT 31 Alkaline Phosphatase 96 Total Protein 7.3 Albumin 3.4 L Globulin 3.9 Albumin/Globulin Ratio 0.9 L Assessment & Plan (1) Atelectasis Status: Acute Priority: High (2) Pyelonephritis Status: Acute (3) Renal colic on right side Status: Acute (4) Sepsis Status: Acute - Assessment and Plan (Free Text) Assessment: 43 year old male, with a past medical history of kidney stones, presents to the ED with right flank pain and fever x 1 week . Patient went to [facility] and found to have a kidney stone and possible UTI and was discharged on Ibuprofen, Metformin, and Flomax. After no improvement he returned to [facility] but was sent home Due to persistent fever and pain he then went to his PMD , Dr. Abdi who advised him to come to the ER. Patient now reports generalized malaise, fatigue, persistent right flank pain, fever, nausea, and poor appetite. ID was consulted for antibiotic management for possible complicated UTI He was started on IV antibiotics empirically opending cultures Past Patient History - Past Medical History & Family History Past Medical History?: Yes - Past Social History Smoking Status: Light Smoker < 10 Cigarettes Daily Chewing Tobacco Use: No Cigar Use: No Alcohol: Social Drugs: Denies Home Situation {Lives}: With Family - CARDIAC Hx Cardiac Disorders: No - PULMONARY Hx Respiratory Disorders: No - NEUROLOGICAL Hx Neurological Disorder: No - HEENT Hx HEENT Problems: No - RENAL Hx Chronic Kidney Disease: Yes Hx Kidney Stones: Yes - ENDOCRINE/METABOLIC Hx Diabetes Mellitus Type 2: Yes (recent dx) - HEMATOLOGICAL/ONCOLOGICAL Hx Blood Disorders: No - INTEGUMENTARY Hx Dermatological Problems: No - MUSCULOSKELETAL/RHEUMATOLOGICAL Hx Musculoskeletal Disorders: No Hx Falls: No - GASTROINTESTINAL Hx Gastrointestinal Disorders: No - GENITOURINARY/GYNECOLOGICAL Hx Genitourinary Disorders: No Other/Comment: Nephrolithiasis - PSYCHIATRIC Hx Psychophysiologic Disorder: No Hx Substance Use: No - SURGICAL HISTORY Hx Surgeries: No - ANESTHESIA Hx Anesthesia: No Hx Anesthesia Reactions: No Hx Malignant Hyperthermia: No Has any member of the family had a problem w/ anesthesia?: No Meds Allergies/Adverse Reactions: Allergies Allergy/AdvReac Type Severity Reaction Status Date / Time No Known Allergies Allergy Verified 01/01/19 14:14 - Medications Medications: Current Medications Acetaminophen (Tylenol 325mg Tab) 975 mg PO ONCE PRN PRN Reason: Fever >100.4 F Last Admin: 01/01/19 16:34 Dose: 975 mg Acetaminophen (Tylenol 325mg Tab) 650 mg PO Q6 PRN PRN Reason: Fever >100.4 F Last Admin: 01/02/19 23:28 Dose: 650 mg Enoxaparin Sodium (Lovenox) 40 mg SC DAILY [facility]; Protocol Last Admin: 01/03/19 09:43 Dose: 40 mg Glipizide (Glucotrol) 10 mg PO BIDAC [facility] Last Admin: 01/03/19 09:45 Dose: 10 mg Sodium Chloride (Sodium Chloride 0.45%) 1,000 mls @ 100 mls/hr IV .Q10H [facility] Stop: 01/04/19 17:00 Last Admin: 01/03/19 06:00 Dose: Not Given Cefepime HCl 1 gm/ Sodium (Chloride) 100 mls @ 100 mls/hr IVPB Q12 [facility]; Protocol Last Admin: 01/03/19 09:42 Dose: 100 mls/hr Insulin Detemir (Levemir) 14 units SC [facility] Last Admin: 01/02/19 22:41 Dose: 14 units Insulin Human Lispro (Humalog) 0 units SC ACHS [facility]; Protocol Last Admin: 01/03/19 12:57 Dose: 4 units Metformin HCl (Glucophage) 500 mg PO BIDWM [facility] Last Admin: 01/03/19 09:46 Dose: 500 mg Tramadol HCl (Ultram) 50 mg PO TID PRN PRN Reason: Pain, Mild (1-3) Results - Vital Signs Recent Vital Signs: Last Vital Signs Temp 99.7 F H 01/03/19 08:38 Pulse 99 H 01/03/19 08:38 Resp 20 01/03/19 08:38 BP 112/76 01/03/19 08:38 Pulse Ox 97 01/03/19 08:38 - Labs Result Diagrams: 01/02/19 12:13 01/03/19 05:30 Labs: Laboratory Results - last 24 hr 01/02/19 01/02/19 01/03/19 16:17 21:28 05:27 Sodium Potassium Chloride Carbon Dioxide Anion Gap BUN Creatinine Est GFR ( Amer) Est GFR (Non-Af Amer) POC Glucose (mg/dL) 317 H 240 H 215 H Random Glucose Hemoglobin A1c Calcium Phosphorus Magnesium Total Bilirubin AST ALT Alkaline Phosphatase Total Protein Albumin Globulin Albumin/Globulin Ratio 01/03/19 01/03/19 01/03/19 05:30 05:30 11:37 Sodium 130 L Potassium 3.3 L Chloride 92 L Carbon Dioxide 27 Anion Gap 14 BUN 12 Creatinine 0.9 Est GFR ( Amer) > 60 Est GFR (Non-Af Amer) > 60 POC Glucose (mg/dL) 312 H Random Glucose 240 H Hemoglobin A1c 13.1 H Calcium 8.6 Phosphorus 3.2 Magnesium 2.1 Total Bilirubin 0.6 AST 31 ALT 31 Alkaline Phosphatase 96 Total Protein 7.3 Albumin 3.4 L Globulin 3.9 Albumin/Globulin Ratio 0.9 L Assessment & Plan (1) Atelectasis Status: Acute Priority: High (2) Pyelonephritis Status: Acute (3) Renal colic on right side Status: Acute (4) Sepsis Status: Acute (5) Diabetes mellitus Assessment and Plan: new onset, exacerbated by possible infection Status: Acute - Assessment and Plan (Free Text) Assessment: 43 year old male, with a past medical history of kidney stones, presents to the ED with right flank pain and fever x 1 week . Patient went to [facility] and found to have a kidney stone and possible UTI and was discharged on Ibuprofen, Metformin, and Flomax. After no improvement he returned to [facility] but was sent home Due to persistent fever and pain he then went to his PMD , Dr. Abdi who advised him to come to the ER. Patient now reports generalized malaise, fatigue, persistent right flank pain, fever, nausea, and poor appetite. ID was consulted for antibiotic management for possible complicated UTI He was started on IV antibiotics empirically opending cultures
--- NOTE | 2019-01-03 17:01 | CP.PCM.PN ---
Subjective - Date & Time of Evaluation Date of Evaluation: 01/03/19 Time of Evaluation: 22:22 - Subjective Subjective: Temp 102.8 early AM Long d/w family Objective - Vital Signs/Intake and Output Vital Signs (last 24 hours): Temp Pulse Resp BP Pulse Ox 98.2 F 99 H 20 112/74 95 01/03/19 16:35 01/03/19 16:35 01/03/19 16:35 01/03/19 16:35 01/03/19 16:35 - Medications Medications: Current Medications Acetaminophen (Tylenol 325mg Tab) 975 mg PO ONCE PRN PRN Reason: Fever >100.4 F Last Admin: 01/01/19 16:34 Dose: 975 mg Acetaminophen (Tylenol 325mg Tab) 650 mg PO Q6 PRN PRN Reason: Fever >100.4 F Last Admin: 01/02/19 23:28 Dose: 650 mg Enoxaparin Sodium (Lovenox) 40 mg SC DAILY [facility]; Protocol Last Admin: 01/03/19 09:43 Dose: 40 mg Glipizide (Glucotrol) 10 mg PO BIDAC [facility] Last Admin: 01/03/19 09:45 Dose: 10 mg Sodium Chloride (Sodium Chloride 0.45%) 1,000 mls @ 100 mls/hr IV .Q10H [facility] Stop: 01/04/19 17:00 Last Admin: 01/03/19 06:00 Dose: Not Given Cefepime HCl 1 gm/ Sodium (Chloride) 100 mls @ 100 mls/hr IVPB Q12 [facility]; Protocol Last Admin: 01/03/19 09:42 Dose: 100 mls/hr Insulin Detemir (Levemir) 20 units SC HS [facility] Insulin Human Lispro (Humalog) 0 units SC ACHS [facility]; Protocol Last Admin: 01/03/19 12:57 Dose: 4 units Metformin HCl (Glucophage) 850 mg PO BIDWM [facility] Tramadol HCl (Ultram) 50 mg PO TID PRN PRN Reason: Pain, Mild (1-3) - Labs Labs: 01/02/19 12:13 01/03/19 05:30 PT 14.0 Seconds (9.8-13.1) H 01/01/19 15:40 INR 1.2 01/01/19 15:40 APTT 33.4 Seconds (25.6-37.1) 01/01/19 15:40 - Respiratory Exam Respiratory Exam: NORMAL BREATHING PATTERN - Cardiovascular Exam Cardiovascular Exam: REGULAR RHYTHM - GI/Abdominal Exam GI & Abdominal Exam: Normal Bowel Sounds Assessment and Plan - Assessment and Plan (Free Text) Assessment: Nephrolithiasis/ Hydronephrosis ?? Pyelonephritis IVF ABX strain urine Urology ID CT scan results from [facility] Multiple calls to [facility] D/W Urology NIDDM new onset A1c 13 Endo Nutritional SOB ?? CT scan ?? Pulmonary consult Hypertryglyceremia
[2019-01-03] MEDS ORDERED: Potassium Chloride 20 mEq ER Tab PO ONE (17:33)
[2019-01-03] MEDS: Sodium Chloride 0.9% 1,000 ML IV SCH (17:40)
--- NOTE | 2019-01-03 20:21 | PN ---
DATE: 01/03/2019 ENDOCRINOLOGY FOLLOWUP NOTE LOCATION: Room 657. SUBJECTIVE: This is a 43-year-old male with recent uncontrolled type 2 insulin-requiring diabetes with marked hyperglycemic accelerations and presenting here with fever and right flank pain and is now being managed for acute pyelonephritis on the background of nephrolithiasis as noted thereof. His glycemic levels are fluctuating as noted overnight and the glucose values have ranged from 223 to 312 mg/dL. It was 215 before breakfast today and 240 at bedtime last night as noted. LABORATORY DATA: His chemistry showed a BUN of 12, sodium 130, potassium 3.3, chloride 92, CO2 of 27, glucose 240 and creatinine 0.9. His A1c is extremely elevated at 13.1%, clearly indicative of recent diagnosis of uncontrolled diabetes with no prior medical therapy thereof. ASSESSMENT: This is a 43-year-old male with uncontrolled and decompensated type 2 insulin-requiring diabetes with marked hyperglycemic accelerations, currently receiving intravenous antibiotic management for acute pyelonephritis on the background of known history of nephrolithiasis. PLAN OF MANAGEMENT: We will modify once again his basal insulin and increase the Levemir to 20 units subcu at bedtime daily to start tonight as ordered. If prandial hyperglycemic accelerations persist, may consider the addition of Humalog insulin as indicated. We will also modify his metformin to 850 mg b.i.d. to start today as ordered and continue the glipizide at 10 mg b.i.d. before meals as ordered. We will continue the IV hydration as given and obtain serial chemistries accordingly. We will follow. Rosenda Farr MD
[2019-01-03] MEDS: Insulin Detemir 100 Units/ml Inj SC SCH (21:52)
[2019-01-04 06:19] LABS: HEMOGLOBIN 12.7 g/dL (12.0-18.0); MEAN CELL VOLUME 78.5 fl (80.0-94.0); MEAN CORPUSCULAR HEMOGLOBIN 25.5 pg (27.0-31.0); MEAN CORPUSCULAR HGB CONC 32.5 g/dL (33.0-37.0); RBC 4.97 Mil/uL (4.40-5.90); RED CELL DISTRIBUTION WIDTH 13.4 % (11.5-14.5); WHITE BLOOD COUNT 8.5 K/uL (4.8-10.8)
[2019-01-04 06:29] LABS: ALB/GLOB RATIO 0.9 (1.0-2.1); ALBUMIN 3.5 g/dL (3.5-5.0); ALT/SGPT 32 U/L (21-72); AST/SGOT 29 U/L (17-59); BLOOD UREA NITROGEN 10 mg/dl (9-20); CALCIUM 8.8 mg/dL (8.4-10.2); GFR NON-AFRICAN AMERICAN > 60
[2019-01-04] MEDS: Insulin Lispro (humaLOG) 100 Units/ml Inj SC SCH ×4 (07:53→22:20)
[2019-01-04] MEDS: Cefepime 1 GM in Sodium Chloride 0.9% 100 ML IVPB SCH ×2 (08:57→21:49)
[2019-01-04] MEDS: Enoxaparin 40 mg Syringe SC SCH (08:59)
[2019-01-04] MEDS: Sodium Chloride 0.9% 1,000 ML IV SCH ×2 (10:29→17:32)
[2019-01-04] MEDS ORDERED: Midazolam 2 MG/2 ML VIAL ONE (11:04)
[2019-01-04] MEDS ORDERED: Propofol 10 mg/ml Inj (20 ML) ONE (11:04)
[2019-01-04] MEDS ORDERED: Iohexol 300 100 ML IJ ONE ×2 (11:07→11:50)
--- NOTE | 2019-01-04 11:40 | CP.PCM.PN ---
Subjective - Date & Time of Evaluation Date of Evaluation: 01/04/19 Time of Evaluation: 09:00 - Subjective Subjective: fever on and off IV rx renewed Objective - Vital Signs/Intake and Output Vital Signs (last 24 hours): Temp Pulse Resp BP Pulse Ox 99.9 F H 111 H 20 120/80 92 L 01/04/19 08:38 01/04/19 08:38 01/04/19 08:38 01/04/19 08:38 01/04/19 08:38 - Medications Medications: Current Medications Acetaminophen (Tylenol 325mg Tab) 975 mg PO ONCE PRN PRN Reason: Fever >100.4 F Last Admin: 01/01/19 16:34 Dose: 975 mg Acetaminophen (Tylenol 325mg Tab) 650 mg PO Q6 PRN PRN Reason: Fever >100.4 F Last Admin: 01/03/19 21:48 Dose: 650 mg Enoxaparin Sodium (Lovenox) 40 mg SC DAILY [facility]; Protocol Last Admin: 01/04/19 08:59 Dose: Not Given Glipizide (Glucotrol) 10 mg PO BIDAC [facility] Last Admin: 01/04/19 08:59 Dose: Not Given Cefepime HCl 1 gm/ Sodium (Chloride) 100 mls @ 100 mls/hr IVPB Q12 [facility]; Protocol Last Admin: 01/04/19 08:57 Dose: 100 mls/hr Sodium Chloride (Sodium Chloride 0.9%) 1,000 mls @ 60 mls/hr IV .[id number] [facility] Stop: 01/04/19 17:35 Last Admin: 01/03/19 17:40 Dose: 60 mls/hr Insulin Detemir (Levemir) 20 units SC HS [facility] Last Admin: 01/03/19 21:52 Dose: 20 units Insulin Human Lispro (Humalog) 0 units SC ACHS [facility]; Protocol Last Admin: 01/04/19 07:53 Dose: Not Given Metformin HCl (Glucophage) 850 mg PO BIDWM [facility] Last Admin: 01/04/19 08:59 Dose: Not Given Tramadol HCl (Ultram) 50 mg PO TID PRN PRN Reason: Pain, Mild (1-3) - Labs Labs: 01/04/19 05:20 01/04/19 05:20 PT 14.0 Seconds (9.8-13.1) H 01/01/19 15:40 INR 1.2 01/01/19 15:40 APTT 33.4 Seconds (25.6-37.1) 01/01/19 15:40 - Constitutional Appears: Chronically Ill - Head Exam Head Exam: NORMOCEPHALIC - Eye Exam Eye Exam: absent: Scleral icterus - ENT Exam ENT Exam: Mucous Membranes Dry - Neck Exam Neck Exam: absent: Lymphadenopathy - Respiratory Exam Respiratory Exam: Decreased Breath Sounds - Cardiovascular Exam Cardiovascular Exam: REGULAR RHYTHM - GI/Abdominal Exam GI & Abdominal Exam: Distended - Rectal Exam Rectal Exam: Deferred - Exam Exam: NORMAL INSPECTION Assessment and Plan (1) Atelectasis Status: Acute (2) Pyelonephritis Status: Acute (3) Renal colic on right side Status: Acute (4) Sepsis Status: Acute (5) Diabetes mellitus Status: Acute - Assessment and Plan (Free Text) Assessment: await cultures eval cont IV rx
[2019-01-04] MEDS ORDERED: Lactated Ringer's 1,000 ML IV ONE (12:03)
[2019-01-04] MEDS: Albuterol 0.083% Inhal Sol (2.5 mg/3 mL) UD INH ONE ×2 (12:03→12:25)
[2019-01-04] MEDS ORDERED: HYDROmorphone 0.5 mg/0.5 ml ISec IVP PRN (12:11)
[2019-01-04] MEDS ORDERED: Albuterol 0.083% Inhal Sol (2.5 mg/3 mL) UD ONE (12:11)
--- NOTE | 2019-01-04 18:02 | PN ---
DATE: 01/04/2019 ENDOCRINOLOGY FOLLOWUP NOTE SUBJECTIVE: This is a 43-year-old male with recent uncontrolled type 2 insulin-requiring diabetes now being followed closely for metabolic management. He presented here with right flank pain and fever with possible acute pyelonephritis and is now being followed closely for metabolic management. His glycemic levels have improved overnight as noted with glucose values ranging from 185 to 191 and 201 mg/dL. His latest chemistries showed a BUN of 10, sodium 136, potassium 3.6, chloride 94, CO2 of 28, glucose 216 and creatinine 0.9. His A1c, however, is elevated at 13.1% indicative of suboptimal metabolic control of his diabetic condition even prior to this admission and clearly because of the recent diagnosis was because he was also untreated and undiagnosed prior to this admission. So at this time, we will continue the basal insulin given and modify to Levemir at 20 units subcu at bedtime daily as given. We will continue the dual oral hypoglycemic therapy with metformin given as 850 mg b.i.d. and glipizide at 10 mg b.i.d. before meals as ordered. We will obtain serial chemistries and supplement accordingly as needed. We will follow up. Rosenda Farr MD
--- NOTE | 2019-01-04 19:30 | CP.PCM.PN ---
Subjective - Date & Time of Evaluation Date of Evaluation: 01/04/19 Time of Evaluation: 22:22 - Subjective Subjective: Cystoscopy with stent Objective - Vital Signs/Intake and Output Vital Signs (last 24 hours): Temp Pulse Resp BP Pulse Ox 98.7 F 108 H 20 111/74 93 L 01/04/19 17:37 01/04/19 17:37 01/04/19 17:37 01/04/19 17:37 01/04/19 17:37 Intake and Output: 01/04/19 01/05/19 18:59 06:59 Intake Total 400 Balance 400 - Medications Medications: Current Medications Acetaminophen (Tylenol 325mg Tab) 975 mg PO ONCE PRN PRN Reason: Fever >100.4 F Last Admin: 01/01/19 16:34 Dose: 975 mg Acetaminophen (Tylenol 325mg Tab) 650 mg PO Q6 PRN PRN Reason: Fever >100.4 F Last Admin: 01/03/19 21:48 Dose: 650 mg Enoxaparin Sodium (Lovenox) 40 mg SC DAILY [facility]; Protocol Last Admin: 01/04/19 08:59 Dose: Not Given Glipizide (Glucotrol) 10 mg PO BIDAC [facility] Last Admin: 01/04/19 17:39 Dose: 10 mg Cefepime HCl 1 gm/ Sodium (Chloride) 100 mls @ 100 mls/hr IVPB Q12 [facility]; Protoc ol Last Admin: 01/04/19 08:57 Dose: 100 mls/hr Insulin Detemir (Levemir) 20 units SC HS [facility] Last Admin: 01/03/19 21:52 Dose: 20 units Insulin Human Lispro (Humalog) 0 units SC ACHS [facility]; Protocol Last Admin: 01/04/19 17:40 Dose: Not Given Metformin HCl (Glucophage) 850 mg PO BIDWM [facility] Last Admin: 01/04/19 17:39 Dose: 850 mg Tramadol HCl (Ultram) 50 mg PO TID PRN PRN Reason: Pain, Mild (1-3) - Labs Labs: 01/04/19 05:20 01/04/19 05:20 PT 14.0 Seconds (9.8-13.1) H 01/01/19 15:40 INR 1.2 01/01/19 15:40 APTT 33.4 Seconds (25.6-37.1) 01/01/19 15:40 - Respiratory Exam Respiratory Exam: NORMAL BREATHING PATTERN - Cardiovascular Exam Cardiovascular Exam: REGULAR RHYTHM - GI/Abdominal Exam GI & Abdominal Exam: Normal Bowel Sounds Assessment and Plan - Assessment and Plan (Free Text) Assessment: Nephrolithiasis/ Hydronephrosis ?? Pyelonephritis IVF ABX strain urine Urology ID Cystoscopy with stent NIDDM new onset A1c 13 Endo Nutritional SOB ?? CT scan ?? Pulmonary consult Hypertryglyceremia
[2019-01-04] MEDS: Insulin Detemir 100 Units/ml Inj SC SCH (22:22)
[2019-01-05 03:18] VITALS: RESP 20
[2019-01-05] MEDS: Insulin Lispro (humaLOG) 100 Units/ml Inj SC SCH ×3 (08:52→15:56)
[2019-01-05] MEDS: Cefepime 1 GM in Sodium Chloride 0.9% 100 ML IVPB SCH (08:53)
[2019-01-05] MEDS: Enoxaparin 40 mg Syringe SC SCH (08:53)
[2019-01-05 10:09] LABS: HEMOGLOBIN 11.9 g/dL (12.0-18.0); MEAN CELL VOLUME 78.3 fl (80.0-94.0); MEAN CORPUSCULAR HEMOGLOBIN 25.4 pg (27.0-31.0); MEAN CORPUSCULAR HGB CONC 32.5 g/dL (33.0-37.0); RBC 4.69 Mil/uL (4.40-5.90); RED CELL DISTRIBUTION WIDTH 13.6 % (11.5-14.5); WHITE BLOOD COUNT 8.1 K/uL (4.8-10.8)
[2019-01-05 10:34] LABS: BLOOD UREA NITROGEN 11 mg/dl (9-20); CALCIUM 8.3 mg/dL (8.4-10.2); GFR NON-AFRICAN AMERICAN > 60
--- NOTE | 2019-01-05 14:46 | CP.PCM.PN ---
Subjective - Date & Time of Evaluation Date of Evaluation: 01/05/19 Time of Evaluation: 08:00 - Subjective Subjective: iv rx in progress improving Objective - Vital Signs/Intake and Output Vital Signs (last 24 hours): Temp Pulse Resp BP Pulse Ox 98.7 F 91 H 20 110/78 95 01/05/19 12:00 01/05/19 12:00 01/05/19 12:00 01/05/19 12:00 01/05/19 12:00 - Medications Medications: Current Medications Acetaminophen (Tylenol 325mg Tab) 975 mg PO ONCE PRN PRN Reason: Fever >100.4 F Last Admin: 01/01/19 16:34 Dose: 975 mg Acetaminophen (Tylenol 325mg Tab) 650 mg PO Q6 PRN PRN Reason: Fever >100.4 F Last Admin: 01/03/19 21:48 Dose: 650 mg Enoxaparin Sodium (Lovenox) 40 mg SC DAILY [facility]; Protocol Last Admin: 01/05/19 08:53 Dose: 40 mg Glipizide (Glucotrol) 10 mg PO BIDAC [facility] Last Admin: 01/05/19 08:53 Dose: 10 mg Cefepime HCl 1 gm/ Sodium (Chloride) 100 mls @ 100 mls/hr IVPB Q12 [facility]; Protocol Last Admin: 01/05/19 08:53 Dose: 100 mls/hr Insulin Detemir (Levemir) 26 units SC HS [facility] Insulin Human Lispro (Humalog) 0 units SC ACHS [facility]; Protocol Last Admin: 01/05/19 11:19 Dose: Not Given Metformin HCl (Glucophage) 850 mg PO BIDWM [facility] Last Admin: 01/05/19 08:52 Dose: 850 mg Tramadol HCl (Ultram) 50 mg PO TID PRN PRN Reason: Pain, Mild (1-3) - Labs Labs: 01/05/19 10:04 01/05/19 10:04 PT 14.0 Seconds (9.8-13.1) H 01/01/19 15:40 INR 1.2 01/01/19 15:40 APTT 33.4 Seconds (25.6-37.1) 01/01/19 15:40 - Constitutional Appears: Non-toxic, Chronically Ill - Head Exam Head Exam: NORMOCEPHALIC - Eye Exam Eye Exam: absent: Scleral icterus - ENT Exam ENT Exam: Mucous Membranes Dry - Neck Exam Neck Exam: absent: Lymphadenopathy - Respiratory Exam Respiratory Exam: Decreased Breath Sounds - Cardiovascular Exam Cardiovascular Exam: REGULAR RHYTHM - GI/Abdominal Exam GI & Abdominal Exam: Distended, Soft - Rectal Exam Rectal Exam: Deferred - Exam Exam: NORMAL INSPECTION - Extremities Exam Extremities Exam: absent: Pedal Edema - Back Exam Back Exam: CVA tenderness (R). absent: CVA tenderness (L) - Neurological Exam Neurological Exam: Alert, Awake, CN II-XII Intact, Oriented x3 Assessment and Plan (1) Atelectasis Status: Acute (2) Pyelonephritis Status: Acute (3) Renal colic on right side Status: Acute (4) Sepsis Status: Acute (5) Diabetes mellitus Status: Acute - Assessment and Plan (Free Text) Assessment: ?pyelo s/p cysto / stent iv rx in progress
--- NOTE | 2019-01-05 14:54 | PN ---
DATE: 01/05/2019 LOCATION: Room 653. SUBJECTIVE: This is a 43-year-old male with recent uncontrolled type 2 insulin-requiring diabetes, presenting here with acute pyelonephritis and fever and right flank pain with ongoing IV antibiotic management and is being followed closely also for metabolic management and recent hyperglycemic accelerations as noted thereof. His glucose levels are fluctuating and the glucose levels overnight have ranged from 239 to 267 mg/dL. LABORATORY DATA: His chemistries showed a BUN of 10, sodium 139, potassium 3.6, chloride 94, CO2 of 28, glucose 216, and creatinine 0.9. ASSESSMENT AND PLAN: So, at this time, we will continue the basal insulin given as Levemir at 20 units subcutaneously at bedtime daily as given. We will continue the glipizide given as 10 mg b.i.d. with metformin given as 850 mg b.i.d. as ordered. We will consider the addition of Januvia given as 100 mg once daily as ordered. We will obtain serial chemistries and supplement accordingly as needed. We will follow with you. Rosenda Farr MD
--- NOTE | 2019-01-05 15:20 | RAD ---
Date of service: 01/04/2019 PROCEDURE: Fluoroscopy up to 1 hr. HISTORY: CYSTOSCOPY COMPARISON: None TECHNIQUE: Standard protocol for this study/examination. FINDINGS: Total fluoroscopic time (continuous mode) utilized during the procedure 49.4 seconds. Total exam DLP: 27.47 (mGy). IMPRESSION: Less than 1 hr fluoroscopic assistance provided during performance of the procedure.
--- NOTE | 2019-01-05 15:36 | CP.PCM.PCO ---
Physician Communication Note - Physician Communication Note Physician Communication Note: Pt requires IV antibiotics for [address] Lei recommendation
[2019-01-05 16:20] VITALS: BP 97/67; PULSE 74; TEMP 98; O2SAT 97
--- NOTE | 2019-01-05 20:21 | CP.PCM.PN ---
Subjective - Date & Time of Evaluation Date of Evaluation: 01/05/19 Time of Evaluation: 22:22 - Subjective Subjective: ID requiring 10 more days IV ABX Objective - Vital Signs/Intake and Output Vital Signs (last 24 hours): Temp Pulse Resp BP Pulse Ox 98 F 74 20 97/67 L 97 01/05/19 16:20 01/05/19 16:20 01/05/19 16:20 01/05/19 16:20 01/05/19 16:20 - Labs Labs: 01/05/19 10:04 01/05/19 10:04 PT 14.0 Seconds (9.8-13.1) H 01/01/19 15:40 INR 1.2 01/01/19 15:40 APTT 33.4 Seconds (25.6-37.1) 01/01/19 15:40 - Respiratory Exam Respiratory Exam: NORMAL BREATHING PATTERN - Cardiovascular Exam Cardiovascular Exam: REGULAR RHYTHM - GI/Abdominal Exam GI & Abdominal Exam: Normal Bowel Sounds Assessment and Plan - Assessment and Plan (Free Text) Assessment: Nephrolithiasis/ Hydronephrosis ?? Pyelonephritis IVF ABX Urology ID Cystoscopy with stent NIDDM new onset A1c 13 Endo Nutritional SOB ?? CT scan ?? Pulmonary consult Hypertryglyceremia
[2019-01-05] MEDS ORDERED: Insulin Detemir 100 Units/ml Inj SC SCH (22:00)
--- NOTE | 2019-01-06 15:58 | PQF ---
PROVIDER RESPONSE TEXT: Sepsis pyelonephritis REVIEWER QUERY TEXT: Conflicting Documentation Clarification ER with an additional diagnosis of Sepsis: Due to tachycardia and fever patient to be hospitalized fo r Sepsis. ID: Consulted for antibiotic management for possible complicated UTI. DX: Atelectasis, Pyelonephritis , Renal colic on R side, Sepsis Please clarify if you are in agreement that the patient also has Sepsis present on admission or not o r other explanation ( please clarify other explanation ) Temp max 102.9, HR max: 122, WBC 7.9, Lactate 1.3, BLOOD CS No growth 48 hours, URINE CS No growth Rx: IVAB A single mention or documentation of multiple diagnoses for the same clinical presentation appears in the record. Please clarify the diagnosis/diagnoses. Please also document if the condition is: -- Confirmed and current -- Confirmed, treated and resolved -- Ruled out -- Other, please specify The patient's Clinical Indicators include: Temp max 102.9, HR max: 122, WBC 7.9, Lactate 1.3, BLOOD CS No growth 48 hours, URINE CS No growth Rx: IVAB Query created by: Cuca Urena on 01/04/2019 1:42 PM Electronically signed by: Ashwin Abdi MD 01/06/2019 3:55 PM
--- NOTE | 2019-01-17 11:51 | CP.PCM.DIS ---
Provider - Provider Date of Admission: 01/01/19 18:29 Attending physician: Ashwin Abdi MD Consults: 01/01/19 21:48 Urology Consult Stat Comment: Consulting Provider: Janice Watts Consulting Physician: Janice Watts Reason for Consult: Renal colic 01/01/19 22:14 Infectious Disease Consult Stat Comment: Consulting Provider: Jake Lei Consulting Physician: Jake Lei Reason for Consult: febrile illness recent UTI possible consolidation 01/02/19 07:00 Endocrinology Consult Routine Comment: please call in AM Consulting Provider: Rosenda Farr Consulting Physician: Rosenda Farr Reason for Consult: new onset Diabetes Pulmonology Consult Routine Comment: please call in AM Consulting Provider: Ashwin Sweeney Consulting Physician: Ashwin Sweeney Reason for Consult: possible pneumonia Time Spent in preparation of Discharge (in minutes): 5 Diagnosis - Discharge Diagnosis (1) Nephrolithiasis Status: Acute (2) Pyelonephritis Status: Acute (3) Renal colic on right side Status: Acute Hospital Course - Lab Results Lab Results: Micro Results 01/01/19 16:04 Blood Blood Culture - Final NO GROWTH AFTER 5 DAYS 01/01/19 16:04 Blood Gram Stain - Final TEST NOT PERFORMED 01/01/19 15:40 Blood Blood Culture - Final NO GROWTH AFTER 5 DAYS 01/01/19 15:40 Blood Gram Stain - Final TEST NOT PERFORMED 01/01/19 17:34 Urine,Clean Catch Urine Culture - Final No Growth (<1,000 CFU/ML) Most Recent Lab Values WBC 8.1 K/uL (4.8-10.8) 01/05/19 10:04 RBC 4.69 Mil/uL (4.40-5.90) 01/05/19 10:04 Hgb 11.9 g/dL (12.0-18.0) L 01/05/19 10:04 Hct 36.7 % (35.0-51.0) 01/05/19 10:04 MCV 78.3 fl (80.0-94.0) L 01/05/19 10:04 MCH 25.4 pg (27.0-31.0) L 01/05/19 10:04 MCHC 32.5 g/dL (33.0-37.0) L 01/05/19 10:04 RDW 13.6 % (11.5-14.5) 01/05/19 10:04 Plt Count 301 K/uL (130-400) 01/05/19 10:04 MPV 9.7 fl (7.2-11.7) 01/01/19 15:40 Neut % (Auto) 72.2 % (50.0-75.0) 01/01/19 15:40 Lymph % (Auto) 17.0 % (20.0-40.0) L 01/01/19 15:40 [place] % (Auto) 9.9 % (0.0-10.0) 01/01/19 15:40 Eos % (Auto) 0.1 % (0.0-4.0) 01/01/19 15:40 Baso % (Auto) 0.8 % (0.0-2.0) 01/01/19 15:40 Neut # (Auto) 5.7 K/uL (1.8-7.0) 01/01/19 15:40 Lymph # (Auto) 1.3 K/uL (1.0-4.3) 01/01/19 15:40 [place] # (Auto) 0.8 K/uL (0.0-0.8) 01/01/19 15:40 Eos # (Auto) 0.0 K/uL (0.0-0.7) 01/01/19 15:40 Baso # (Auto) 0.1 K/uL (0.0-0.2) 01/01/19 15:40 PT 14.0 Seconds (9.8-13.1) H 01/01/19 15:40 INR 1.2 01/01/19 15:40 APTT 33.4 Seconds (25.6-37.1) 01/01/19 15:40 D-Dimer, Quantitative 688 ng/mlDDU (0-230) H 01/01/19 18:43 pO2 20 mm/Hg (30-55) L 01/01/19 15:27 VBG pH 7.37 (7.32-7.43) 01/01/19 15:27 VBG pCO2 45 mmHg (40-60) 01/01/19 15:27 VBG HCO3 23.5 mmol/L 01/01/19 15:27 VBG Total CO2 27.4 mmol/L (22-28) 01/01/19 15:27 VBG O2 Sat (Calc) 51.3 % (40-65) 01/01/19 15:27 VBG Base Excess 0.2 mmol/L (0.0-2.0) 01/01/19 15:27 VBG Potassium 3.9 mmol/L (3.6-5.2) 01/01/19 15:27 Sodium 131.0 mmol/L (132-148) L 01/01/19 15:27 Chloride 98.0 mmol/L (98-107) 01/01/19 15:27 Glucose 300 mg/dL (75-110) H 01/01/19 15:27 Lactate 1.3 mmol/L (0.7-2.1) 01/01/19 15:27 FiO2 21.0 % 01/01/19 15:27 Sodium 133 mmol/l (132-148) 01/05/19 10:04 Potassium 3.7 MMOL/L (3.6-5.0) 01/05/19 10:04 Chloride 94 mmol/L (98-107) L 01/05/19 10:04 Carbon Dioxide 29 mmol/L (22-30) 01/05/19 10:04 Anion Gap 14 (10-20) 01/05/19 10:04 BUN 11 mg/dl (9-20) 01/05/19 10:04 Creatinine 0.9 mg/dl (0.8-1.5) 01/05/19 10:04 Est GFR ( Amer) > 60 01/05/19 10:04 Est GFR (Non-Af Amer) > 60 01/05/19 10:04 POC Glucose (mg/dL) 157 mg/dL (65-110) H 01/05/19 21:23 Random Glucose 307 mg/dL (75-110) H 01/05/19 10:04 Hemoglobin A1c 13.1 % (4.2-6.5) H 01/03/19 05:30 Calcium 8.3 mg/dL (8.4-10.2) L 01/05/19 10:04 Phosphorus 3.2 mg/dl (2.5-4.5) 01/03/19 05:30 Magnesium 2.1 MG/DL (1.6-2.3) 01/03/19 05:30 Total Bilirubin 0.6 mg/dl (0.2-1.3) 01/04/19 05:20 AST 29 U/L (17-59) 01/04/19 05:20 ALT 32 U/L (21-72) 01/04/19 05:20 Alkaline Phosphatase 98 U/L (38-126) 01/04/19 05:20 Total Protein 7.5 G/DL (6.3-8.2) 01/04/19 05:20 Albumin 3.5 g/dL (3.5-5.0) 01/04/19 05:20 Globulin 4.0 gm/dL (2.2-3.9) H 01/04/19 05:20 Albumin/Globulin Ratio 0.9 (1.0-2.1) L 01/04/19 05:20 Triglycerides 502 mg/DL (0-149) H 01/02/19 05:30 Cholesterol 184 mg/dL (0-199) 01/02/19 05:30 LDL Cholesterol Direct 84 mg/dL (0-129) 01/02/19 05:30 HDL Cholesterol 15 MG/DL (30-70) L 01/02/19 05:30 TSH 3rd Generation 1.73 mIU/ML (0.46-4.68) 01/01/19 23:56 Calcium (PTH Intact) 8.0 mg/dL (8.6-10.3) L 01/03/19 05:30 PTH w/Ion &Tot Calcium 17 pg/mL (14-64) 01/03/19 05:30 Venous Blood Potassium 3.9 mmol/L (3.6-5.2) 01/01/19 15:27 Urine Color Yellow (YELLOW) 01/01/19 17:34 Urine Clarity Clear (Clear) 01/01/19 17:34 Urine pH 6.0 (5.0-8.0) 01/01/19 17:34 Ur Specific [place] 1.026 (1.003-1.030) 01/01/19 17:34 Urine Protein 100 mg/dL (NEGATIVE) 01/01/19 17:34 Urine Glucose (UA) >=500 mg/dL (NEGATIVE) 01/01/19 17:34 Urine Ketones 80 mg/dL (NEGATIVE) 01/01/19 17:34 Urine Blood Moderate (NEGATIVE) 01/01/19 17:34 Urine Nitrate Negative (NEGATIVE) 01/01/19 17:34 Urine Bilirubin Negative (NEGATIVE) 01/01/19 17:34 Urine Urobilinogen 0.2-1.0 mg/dL (0.2-1.0) 01/01/19 17:34 Ur Leukocyte Esterase Neg [place]/uL (Negative) 01/01/19 17:34 Urine RBC (Auto) 1 /hpf (0-3) 01/01/19 17:34 Urine Microscopic WBC 2 /hpf (0-5) 01/01/19 17:34 Ur Squamous Epith Cells < 1 /hpf (0-5) 01/01/19 17:34 Urine Bacteria Rare (<OCC) 01/01/19 17:34 - Hospital Course Hospital Course: cystoscopy with stent IV ABX Discharge Exam - Head Exam Head Exam: NORMOCEPHALIC Discharge Plan - Follow Up Plan Condition: FAIR Disposition: TRANSF TO SNF Instructions: Kidney Stones (DC), Community-Acquired Pneumonia, Adult (DC), Cystoscopy (DC), Urinary Tract Infection in Men (DC) Additional Instructions: follow up with Dr. Abdi and Dr. Watts 1 week Referrals: Janice Watts MD [Medical Doctor] - Jake Lei MD [Staff Provider] - Ashwin Abdi MD [Family Provider] -
--- NOTE | 2019-01-27 22:11 | OP ---
PROCEDURE DATE: 01/04/2019 PREOPERATIVE DIAGNOSIS: Acute renal colic secondary to calculus. PROCEDURE PERFORMED: Cystoscopy with an insertion of a double-J stent. SURGEON: Janice Watts MD DESCRIPTION OF PROCEDURE: The patient was placed on the operating room table in a dorsal lithotomy position and was given general anesthesia. The area of the groin was draped and prepped and at this time using a #21 cystoscope, I entered into the bladder atraumatically. The stone on CAT scan was identified on the right side. At this time, I observed the right ureteral orifice and using a sensor wire, I was able to advance the wire to the level of the renal pelvis. Under fluoroscopy and over that sensor wire, I placed a 6-Pashto multilength double-J stent. Once it appeared to be in good position fluoroscopically, then the cystoscope was removed. The patient was taken from the operating room in good condition. There was no blood loss. Janice Watts MD
== END 2019-01-05 18:40 | DRG 854 ==
LOC: H.ER 13:49 → OBSVTOIN 18:29 → H.ERHOLD 18:29 → H.MEDSURG1 01-02 00:57
PROVIDERS: ADMIT Family Medicine Geriatric Medicine; ATTEND Family Medicine Geriatric Medicine
PROC: 0T768DZ Dilation of Right Ureter with Intraluminal Device, Via Natural or Artificial Opening Endoscopic (ICD-10-PCS; principal; 2019-01-04 10:30)
DX: A41.9 Sepsis, unspecified organism (principal); N13.6 Pyonephrosis; J98.11 Atelectasis; E11.65 Type 2 diabetes mellitus with hyperglycemia; Z79.4 Long term (current) use of insulin; F17.210 Nicotine dependence, cigarettes, uncomplicated; I12.9 Hypertensive chronic kidney disease with stage 1 through stage 4 chronic kidney disease, or unspecified chronic kidney disease; N18.9 Chronic kidney disease, unspecified; E11.22 Type 2 diabetes mellitus with diabetic chronic kidney disease

== ENCOUNTER 2019-01-05 20:43 | Inpatient (IN) | payer BC ==
[2019-01-05] MEDS: Insulin Detemir 100 Units/ml Inj SC SCH (22:42)
[2019-01-05] MEDS: Insulin Lispro (humaLOG) 100 Units/ml Inj SC SCH (22:43)
[2019-01-05] MEDS: Cefepime 1 GM in Sodium Chloride 0.9% 100 ML IVPB SCH (23:00)
[2019-01-06] MEDS: Cefepime 1 GM in Sodium Chloride 0.9% 100 ML IVPB SCH ×3 (02:53→21:31)
[2019-01-06] MEDS: Insulin Lispro (humaLOG) 100 Units/ml Inj SC SCH ×4 (08:27→21:33)
[2019-01-06] MEDS: Enoxaparin 40 mg Syringe SC SCH (08:34)
[2019-01-06] MEDS ORDERED: Patient's Own Med (Cefepime 1gm In Ns 100ml [Maxipime 1gm] 1 GM) IVPB SCH (09:00)
--- NOTE | 2019-01-06 10:47 | CP.PCM.CON ---
History of Present Illness - History of Present Illness History of Present Illness: Asked to follow this 43-year-old male who presented with right sided nephrolithiasis and hydronephrosis accompanied by an elevated right hemidiaphragm and episodic shortness of breath. He has no prior history of any pulmonary disease and has been stable from a respiratory point of view since admission. He was seen by urology and cystoscopy with stent placement was performed and the patient has been discharged to transitional care. He is a current cigarette smoker, smoking less than one half pack per day but denies chronic cough or dyspnea on exertion other than the present illness. Past Patient History - Past Medical History & Family History Past Medical History?: Yes - Past Social History Smoking Status: Light Smoker < 10 Cigarettes Daily Chewing Tobacco Use: No Cigar Use: No Alcohol: Social Drugs: Denies Home Situation {Lives}: With Family - CARDIAC Hx Cardiac Disorders: No - PULMONARY Hx Respiratory Disorders: No - NEUROLOGICAL Hx Neurological Disorder: No - HEENT Hx HEENT Problems: No - RENAL Hx Kidney Stones: Yes - ENDOCRINE/METABOLIC Hx Diabetes Mellitus Type 2: Yes (recent dx) - HEMATOLOGICAL/ONCOLOGICAL Hx Blood Disorders: No Hx AIDS: No Hx Human Immunodeficiency Virus (HIV): No - INTEGUMENTARY Hx Dermatological Problems: No - MUSCULOSKELETAL/RHEUMATOLOGICAL Hx Musculoskeletal Disorders: No Hx Falls: No - GASTROINTESTINAL Hx Gastrointestinal Disorders: No - GENITOURINARY/GYNECOLOGICAL Hx Genitourinary Disorders: No Other/Comment: Nephrolithiasis - PSYCHIATRIC Hx Psychophysiologic Disorder: No Hx Substance Use: No - SURGICAL HISTORY Hx Surgeries: No - ANESTHESIA Hx Anesthesia: No Hx Anesthesia Reactions: No Hx Malignant Hyperthermia: No Meds Allergies/Adverse Reactions: Allergies Allergy/AdvReac Type Severity Reaction Status Date / Time No Known Allergies Allergy Verified 01/01/19 14:14 - Medications Medications: Current Medications Acetaminophen (Tylenol 325mg Tab) 650 mg PO Q4 PRN PRN Reason: Pain, moderate (4-7) Enoxaparin Sodium (Lovenox) 40 mg SC DAILY [facility]; Protocol Last Admin: 01/06/19 08:34 Dose: 40 mg Glipizide (Glucotrol) 10 mg PO BIDAC [facility] Last Admin: 01/06/19 08:34 Dose: 10 mg Cefepime HCl 1 gm/ Sodium (Chloride) 100 mls @ 100 mls/hr IVPB Q12 [facility] Last Admin: 01/06/19 08:34 Dose: 100 mls/hr Insulin Detemir (Levemir) 26 units SC [facility] Last Admin: 01/05/19 22:42 Dose: 26 u Insulin Human Lispro (Humalog) 0 units SC [facility]; Protocol Last Admin: 01/06/19 08:27 Dose: Not Given Metformin HCl (Glucophage) 850 mg PO BIDWM [facility] Last Admin: 01/06/19 08:34 Dose: 850 mg Tramadol HCl (Ultram) 50 mg PO Q6 PRN PRN Reason: Pain, severe (8-10) Physical Exam - Additional Findings Additional findings: Well-nourished, well-developed overweight male sitting comfortably in the bedside chair. He offers no complaints of shortness of breath or cough at this time. Pharynx is pink and mucous membranes are moist without exudate. Neck is supple and trachea is midline. No neck vein distention or carotid bruit. Nares are patent bilaterally. No bleeding or exudate. No dullness on chest percussion. Equal expansion. Breath sounds appear slightly diminished bilaterally without any rales or wheezes. No bronchial breath sounds or egophony. No rhonchi. Heart sounds are well heard and rhythm is regular without murmur. Abdomen is soft and nontender. Normal bowel sounds. No dependent edema of the lower extremities. No calf tenderness. No cyanosis. Results - Vital Signs Recent Vital Signs: Last Vital Signs Temp 98.4 F 01/06/19 08:26 Pulse 96 H 01/06/19 10:26 Resp 20 01/06/19 08:26 BP 130/83 01/06/19 10:26 Pulse Ox 96 01/06/19 10:26 - Labs Labs: Laboratory Results - last 24 hr 01/06/19 06:10 POC Glucose (mg/dL) 149 H Assessment & Plan (1) Dyspnea and respiratory abnormality Status: Resolved (2) Acquired elevated diaphragm Status: Acute - Assessment and Plan (Free Text) Plan: Followup chest x-ray with PA and lateral views has been requested. - Date & Time Date: 01/06/19 Time: 10:45
--- NOTE | 2019-01-06 13:01 | CP.PCM.CON ---
History of Present Illness - History of Present Illness History of Present Illness: 43 year old male, with a past medical history of kidney stones, presents to the ED with right flank pain and fever x 1 week . Admitted with persistent right flank pain, fever, nausea, and poor appetite. ID was consulted for antibiotic management for possible complicated UTI He had cysto and stent placement for relief of obstruction Now transferred to TCU for cont of antibiotics Review of Systems - Review of Systems All systems: reviewed and no additional remarkable complaints except - Constitutional Constitutional: As Per HPI, Chills, Fever, Malaise - EENT Eyes: absent: As Per HPI, Blind Spots, Blurred Vision, Change in Vision, Decreased Night Vision, Diplopia, Discharge, Dry Eye, Exophthalmos, Floaters, Irritation, Itchy Eyes, Loss of Peripheral Vision, Pain, Photophobia, Requires Corrective Lenses, Sees Flashes, Spots in Vision, Tunnel Vision, Other Visual Disturbances, Loss of Vision, Other Ears: absent: As Per HPI, Decreased Hearing, Ear Discharge, Ear Pain, Tinnitus, Abnormal Hearing, Disequilibrium, Dizziness, Other Nose/Mouth/Throat: absent: As Per HPI, Epistaxis, Nasal Congestion, Nasal Discharge, Nasal Obstruction, Nasal Trauma, Nose Pain, Post Nasal Drip, Sinus Pain, Sinus Pressure, Bleeding Gums, Change in Voice, Dental Pain, Dry Mouth, Dysphagia, Halitosis, Hoarsness, Lip Swelling, Mouth Lesions, Mouth Pain, Odynophagia, Sore Throat, Throat Swelling, Tongue Swelling, Facial Pain, Neck Pain, Neck Mass, Other - Cardiovascular Cardiovascular: absent: As Per HPI, Acrocyanosis, Chest Pain, Chest Pain at Rest, Chest Pain with Activity, Claudication, Diaphoresis, Dyspnea, Dyspnea on Exertion, Edema, Irregular Heart Rhythm, Pain Radiating to Arm/Neck/Jaw, Leg Edema, Leg Ulcers, Lightheadedness, Orthopnea, Palpitations, Paroxysmal Nocturnal Dyspnea, Pedal Edema, Radiating Pain, Rapid Heart Rate, Slow Heart Rate, Syncope, Other - Respiratory Respiratory: absent: As Per HPI, Cough, Dyspnea, Hemoptysis, Dyspnea on Exe rtion, Wheezing, Snoring, Stridor, Pain on Inspiration, Chest Congestion, Excessive Mucous Production, Change in Mucous Color, Pain with Coughing, Other - Gastrointestinal Gastrointestinal: absent: As Per HPI, Abdominal Pain, Belching, Bloating, Change in Bowel Habits, Change in Stool Character, Coffee Ground Emesis, Constipation, Cramping, Diarrhea, Dyspepsia, Dysphagia, Early Satiety, Excessive Flatus, Fecal Incontinence, Heartburn, Hematemesis, Hematochezia, Loose Stools, Melena, Nausea, Odynophagia, Temesmus, Vomiting, Other - Genitourinary Genitourinary: As Per HPI - Musculoskeletal Musculoskeletal: absent: As Per HPI, Abnormal Gait, Arthralgias, Atrophy, Back Pain, Deformity, Joint Swelling, Limited Range of Motion, Loss of Height, Muscle Cramps, Muscle Weakness, Myalgias, Neck Pain, Numbness, Radiating Pain into Limb, Stiffness, Tingling, Other - Integumentary Integumentary: absent: As Per HPI, Acne, Alopecia, Bleeding Lesions, Change in Hair, Change in Nails, Change in Pigmentation, Changing Lesions, Dry Skin, Erythema, Furuncle, Hirsutism, Lesions, New Lesions, Non-Healing Lesions, Photosensitivity, Pruritus, Rash, Skin Pain, Skin Ulcer, Sores, Striae, Swelling, Unusual Bruising, Wounds, Jaundice, Other - Neurological Neurological: absent: As Per HPI, Abnormal Gait, Abnormal Hearing, Abnormal Movements, Abnormal Speech, Behavioral Changes, Burning Sensations, Confusion, Convulsions, Disequilibrium, Dizziness, Numbness, Focal Weakness, Frequent Falls, Headaches, Lack of Coordination, Loss of Vision, Memory Loss, Paresthesias, Radicular Pain, Restless Legs, Sensory Deficit, Syncope, Tingling, Tremor, Vertigo, Weakness, Other Visual Disturbances, Other - Psychiatric Psychiatric: absent: As Per HPI, Abnormal Sleep Pattern, Anhedonia, Anxiety, Auditory Hallucinations, Behavioral Changes, Change in Appetite, Change in Libido, Confusion, Depression, Difficulty Concentrating, Hallucinations, Homicidal Ideation, Hopelessness, Irritability, Memory Loss, Mood Swings, Panic Attacks, Paranoia, Suicidal Ideation, Visual Hallucinations, Tactile Hallucinations, Other - Endocrine Endocrine: absent: As Per HPI, Change in Body Appearance, Change in Libido, Cold Intolorance, Deepening of Voice, Excessive Sweating, Fatigue, Flushing, Heat Intolorance, Increase in Ring/Shoe/Hat Size, Palpitations, Polydipsia, Polyphagia, Polyuria, Other - Hematologic/Lymphatic Hematologic: absent: As Per HPI, Easy Bleeding, Easy Bruising, Lymphadenopathy, Other Past Patient History - Past Medical History & Family History Past Medical History?: Yes - Past Social History Smoking Status: Light Smoker < 10 Cigarettes Daily - CARDIAC Hx Cardiac Disorders: No - PULMONARY Hx Respiratory Disorders: No - NEUROLOGICAL Hx Neurological Disorder: No - HEENT Hx HEENT Problems: No - RENAL Hx Chronic Kidney Disease: Yes Hx Kidney Stones: Yes - ENDOCRINE/METABOLIC Hx Diabetes Mellitus Type 2: Yes (recent dx) - HEMATOLOGICAL/ONCOLOGICAL Hx Blood Disorders: No Hx AIDS: No Hx Human Immunodeficiency Virus (HIV): No - INTEGUMENTARY Hx Dermatological Problems: No - MUSCULOSKELETAL/RHEUMATOLOGICAL Hx Musculoskeletal Disorders: No Hx Falls: No - GASTROINTESTINAL Hx Gastrointestinal Disorders: No - GENITOURINARY/GYNECOLOGICAL Hx Genitourinary Disorders: No Other/Comment: Nephrolithiasis - PSYCHIATRIC Hx Psychophysiologic Disorder: No Hx Substance Use: No - SURGICAL HISTORY Hx Surgeries: No - ANESTHESIA Hx Anesthesia: No Hx Anesthesia Reactions: No Hx Malignant Hyperthermia: No Meds Allergies/Adverse Reactions: Allergies Allergy/AdvReac Type Severity Reaction Status Date / Time No Known Allergies Allergy Verified 01/01/19 14:14 - Medications Medications: Current Medications Acetaminophen (Tylenol 325mg Tab) 650 mg PO Q4 PRN PRN Reason: Pain, moderate (4-7) Enoxaparin Sodium (Lovenox) 40 mg SC DAILY [facility]; Protocol Last Admin: 01/06/19 08:34 Dose: 40 mg Glipizide (Glucotrol) 10 mg PO BIDAC [facility] Last Admin: 01/06/19 08:34 Dose: 10 mg Cefepime HCl 1 gm/ Sodium (Chloride) 100 mls @ 100 mls/hr IVPB Q12 [facility] Last Admin: 01/06/19 08:34 Dose: 100 mls/hr Insulin Detemir (Levemir) 26 units SC HS [facility] Last Admin: 01/05/19 22:42 Dose: 26 u Insulin Human Lispro (Humalog) 0 units SC ACHS [facility]; Protocol Last Admin: 01/06/19 12:43 Dose: 3 units Metformin HCl (Glucophage) 850 mg PO BIDWM [facility] Last Admin: 01/06/19 08:34 Dose: 850 mg Tramadol HCl (Ultram) 50 mg PO Q6 PRN PRN Reason: Pain, severe (8-10) Results - Vital Signs Recent Vital Signs: Last Vital Signs Temp 98.4 F 01/06/19 08:26 Pulse 96 H 01/06/19 10:26 Resp 20 01/06/19 08:26 BP 130/83 01/06/19 10:26 Pulse Ox 96 01/06/19 10:26 - Labs Labs: Laboratory Results - last 24 hr 01/06/19 06:10 POC Glucose (mg/dL) 149 H
--- NOTE | 2019-01-06 14:18 | RAD ---
Date of service: 01/06/2019 HISTORY: Elevated right diaphragm COMPARISON: 01/01/2019 TECHNIQUE: Chest PA and lateral FINDINGS: LUNGS: No active pulmonary disease. PLEURA: No significant pleural effusion identified. No pneumothorax apparent. CARDIOVASCULAR: No aortic atherosclerotic calcification present. Normal cardiac size. No pulmonary vascular congestion. OSSEOUS STRUCTURES: No significant abnormalities. VISUALIZED UPPER ABDOMEN: Normal. OTHER FINDINGS: None. IMPRESSION: No active disease.
--- NOTE | 2019-01-06 18:55 | CP.PCM.HP ---
History of Present Illness - History of Present Illness History of Present Illness: 43 yo admitted for IV ABX Present on Admission - Present on Admission Any Indicators Present on Admission: No Past Patient History - Past Medical History & Family History Past Medical History?: Yes - Past Social History Smoking Status: Light Smoker < 10 Cigarettes Daily Chewing Tobacco Use: No Cigar Use: No Alcohol: Social Drugs: Denies Home Situation {Lives}: With Family - CARDIAC Hx Cardiac Disorders: No - PULMONARY Hx Respiratory Disorders: No - NEUROLOGICAL Hx Neurological Disorder: No - HEENT Hx HEENT Problems: No - RENAL Hx Kidney Stones: Yes - ENDOCRINE/METABOLIC Hx Diabetes Mellitus Type 2: Yes (recent dx) - HEMATOLOGICAL/ONCOLOGICAL Hx Blood Disorders: No Hx AIDS: No Hx Human Immunodeficiency Virus (HIV): No - INTEGUMENTARY Hx Dermatological Problems: No - MUSCULOSKELETAL/RHEUMATOLOGICAL Hx Musculoskeletal Disorders: No Hx Falls: No - GASTROINTESTINAL Hx Gastrointestinal Disorders: No - GENITOURINARY/GYNECOLOGICAL Hx Genitourinary Disorders: No Other/Comment: Nephrolithiasis - PSYCHIATRIC Hx Psychophysiologic Disorder: No Hx Substance Use: No - SURGICAL HISTORY Hx Surgeries: No - ANESTHESIA Hx Anesthesia: No Hx Anesthesia Reactions: No Hx Malignant Hyperthermia: No Meds Allergies/Adverse Reactions: Allergies Allergy/AdvReac Type Severity Reaction Status Date / Time No Known Allergies Allergy Verified 01/01/19 14:14 Physical Exam - Respiratory Exam Respiratory Exam: NORMAL BREATHING PATTERN - Cardiovascular Exam Cardiovascular Exam: REGULAR RHYTHM - GI/Abdominal Exam GI & Abdominal Exam: Normal Bowel Sounds Results - Vital Signs Recent Vital Signs: Last Vital Signs Temp 98.4 F 01/06/19 17:23 Pulse 82 01/06/19 17:23 Resp 20 01/06/19 17:23 BP 123/82 01/06/19 17:23 Pulse Ox 97 01/06/19 17:23 - Labs Labs: Laboratory Results - last 24 hr 01/06/19 01/06/19 01/06/19 06:10 10:21 16:37 POC Glucose (mg/dL) 149 H 257 H 112 H Assessment & Plan - Assessment and Plan (Free Text) Assessment: Iv ABX TCU S/P Cystoscopy with stent Nephrolithiasis/ Hydronephrosis ?? Pyelonephritis IVF ABX Urology ID NIDDM new onset A1c 13 Hypertryglyceremia Endo Nutritional SOB ?? CT scan ?? Pulmonary - Date & Time Date: 01/06/19 Time: 22:22
[2019-01-06] MEDS: Insulin Detemir 100 Units/ml Inj SC SCH (22:31)
[2019-01-07 06:29] LABS: BASO # 0.1 K/uL (0.0-0.2); EOS % 0.5 % (0.0-4.0); HEMOGLOBIN 12.2 g/dL (12.0-18.0); LYMPH % 26.2 % (20.0-40.0); MEAN CELL VOLUME 78.7 fl (80.0-94.0); MEAN CORPUSCULAR HEMOGLOBIN 25.4 pg (27.0-31.0); MEAN CORPUSCULAR HGB CONC 32.3 g/dL (33.0-37.0); MEAN PLATELET VOLUME 8.1 fl (7.2-11.7); MONO # 0.6 K/uL (0.0-0.8); MONO % 7.5 % (0.0-10.0); NEUT # 4.8 K/uL (1.8-7.0); NEUT % 64.8 % (50.0-75.0); NRBC % 0.1 % (0.0-0.0); RBC 4.8 Mil/uL (4.40-5.90); RED CELL DISTRIBUTION WIDTH 13.4 % (11.5-14.5); WHITE BLOOD COUNT 7.5 K/uL (4.8-10.8)
[2019-01-07 06:51] LABS: ALB/GLOB RATIO 0.8 (1.0-2.1); ALBUMIN 3.2 g/dL (3.5-5.0); ALT/SGPT 54 U/L (21-72); AST/SGOT 77 U/L (17-59); BLOOD UREA NITROGEN 14 mg/dl (9-20); CALCIUM 9.2 mg/dL (8.4-10.2); GFR NON-AFRICAN AMERICAN > 60
[2019-01-07] MEDS: Insulin Lispro (humaLOG) 100 Units/ml Inj SC SCH ×4 (07:01→21:33)
[2019-01-07] MEDS: Enoxaparin 40 mg Syringe SC SCH (08:37)
[2019-01-07] MEDS: Cefepime 1 GM in Sodium Chloride 0.9% 100 ML IVPB SCH ×2 (08:39→21:07)
--- NOTE | 2019-01-07 09:31 | PN ---
DATE: 01/06/2019 ENDOCRINOLOGY FOLLOWUP NOTE LOCATION: Room 713, [facility]. SUBJECTIVE: This is a 43-year-old male with recent uncontrolled type 2 insulin-requiring diabetes, now being followed closely for metabolic management. His glycemic levels are fluctuating but improved and the glucose levels overnight were actually 149 mg/dL. LABORATORY DATA: His latest chemistries showed a BUN of 11, sodium 133, potassium 3.7, chloride 94, CO2 of 29, glucose 149 and creatinine 0.9. His A1c, however, is elevated and 13.1% as expected because of the recent diagnosis and lack of medical therapy even prior to this admission. PLAN: We will continue the Levemir given as basal insulin at 26 units subcutaneous at bedtime daily as given. We will also continue the oral hypoglycemic therapy with glipizide given as 10 mg b.i.d. and metformin at 850 mg b.i.d. as ordered. We will obtain serial chemistries and supplement accordingly as needed. We will follow. Rosenda Farr MD
--- NOTE | 2019-01-07 10:48 | CP.PCM.PN ---
Subjective - Date & Time of Evaluation Date of Evaluation: 01/07/19 Time of Evaluation: 10:43 - Subjective Subjective: Feels well. Offers no complaints of SOB or chest discomfort. Repeat chest x-ray unremarkable; improved expansion on the right. Cleared from a pulmonary standpoint. Objective - Vital Signs/Intake and Output Vital Signs (last 24 hours): Temp Pulse Resp BP Pulse Ox 98.6 F 78 20 112/73 96 01/07/19 08:16 01/07/19 08:16 01/07/19 08:16 01/07/19 08:16 01/07/19 08:16 - Medications Medications: Current Medications Acetaminophen (Tylenol 325mg Tab) 650 mg PO Q4 PRN PRN Reason: Pain, moderate (4-7) Enoxaparin Sodium (Lovenox) 40 mg SC DAILY [facility]; Protocol Last Admin: 01/07/19 08:37 Dose: 40 mg Glipizide (Glucotrol) 10 mg PO BIDAC [facility] Last Admin: 01/07/19 07:38 Dose: 10 mg Cefepime HCl 1 gm/ Sodium (Chloride) 100 mls @ 100 mls/hr IVPB Q12 [facility] Last Admin: 01/07/19 08:39 Dose: 100 mls/hr Insulin Detemir (Levemir) 26 units SC HS [facility] Last Admin: 01/06/19 22:31 Dose: 26 u Insulin Human Lispro (Humalog) 0 units SC ACHS [facility]; Protocol Last Admin: 01/07/19 07:01 Dose: 1 units Metformin HCl (Glucophage) 850 mg PO BIDWM [facility] Last Admin: 01/07/19 08:37 Dose: 850 mg Tramadol HCl (Ultram) 50 mg PO Q6 PRN PRN Reason: Pain, severe (8-10) - Labs Labs: 01/07/19 05:35 01/07/19 05:35 Assessment and Plan (1) Dyspnea and respiratory abnormality Status: Resolved (2) Acquired elevated diaphragm Status: Acute
--- NOTE | 2019-01-07 19:55 | PN ---
DATE: 11/06/2019 ENDOCRINOLOGY FOLLOWUP NOTE LOCATION: Room 713. SUBJECTIVE: This is a 43-year-old male with recent uncontrolled type 2 insulin-requiring diabetes, now being followed closely for metabolic management. His glycemic levels are fluctuating but improved as noted. He presented here with right flank pain and fever with underlying nephrolithiasis and was evaluated for acute pyelonephritis as noted thereof. LABORATORY DATA: His latest chemistries today showed a BUN of 14, sodium 138, potassium 3.5, chloride 96, CO2 of 32, glucose 199 and creatinine 0.8. His glucose levels have ranged from 152 to 186 and 280 mg/dL. PLAN: So at this time, we will continue the same dual oral hypoglycemic therapy as given in combination with basal insulin as ordered. We will continue the Levemir given as 26 units subcutaneously at bedtime daily as given. We will continue the metformin given as 850 mg b.i.d. and glipizide as 10 mg b.i.d. before meals as ordered. We will obtain serial chemistries and supplement accordingly as needed. We will also continue the low-dose correction scale using Humalog insulin as ordered. We will follow and advise accordingly. Rosenda Farr MD
--- NOTE | 2019-01-07 20:14 | CP.PCM.PN ---
Subjective - Date & Time of Evaluation Date of Evaluation: 01/07/19 Time of Evaluation: 22:22 - Subjective Subjective: Pulmonary note appreciated Objective - Vital Signs/Intake and Output Vital Signs (last 24 hours): Temp Pulse Resp BP Pulse Ox 98.4 F 88 20 114/77 97 01/07/19 19:31 01/07/19 19:31 01/07/19 19:31 01/07/19 19:31 01/07/19 19:31 - Medications Medications: Current Medications Acetaminophen (Tylenol 325mg Tab) 650 mg PO Q4 PRN PRN Reason: Pain, moderate (4-7) Enoxaparin Sodium (Lovenox) 40 mg SC DAILY [facility]; Protocol Last Admin: 01/07/19 08:37 Dose: 40 mg Glipizide (Glucotrol) 10 mg PO BIDAC [facility] Last Admin: 01/07/19 16:58 Dose: 10 mg Cefepime HCl 1 gm/ Sodium (Chloride) 100 mls @ 100 mls/hr IVPB Q12 [facility] Last Admin: 01/07/19 08:39 Dose: 100 mls/hr Insulin Detemir (Levemir) 26 units SC HS [facility] Last Admin: 01/06/19 22:31 Dose: 26 u Insulin Human Lispro (Humalog) 0 units SC ACHS [facility]; Protocol Last Admin: 01/07/19 16:57 Dose: Not Given Metformin HCl (Glucophage) 850 mg PO BIDWM [facility] Last Admin: 01/07/19 16:58 Dose: 850 mg Tramadol HCl (Ultram) 50 mg PO Q6 PRN PRN Reason: Pain, severe (8-10) - Labs Labs: 01/07/19 05:35 01/07/19 05:35 - Respiratory Exam Respiratory Exam: NORMAL BREATHING PATTERN - Cardiovascular Exam Cardiovascular Exam: REGULAR RHYTHM - GI/Abdominal Exam GI & Abdominal Exam: Normal Bowel Sounds Assessment and Plan - Assessment and Plan (Free Text) Assessment: Iv ABX TCU S/P Cystoscopy with stent Nephrolithiasis/ Hydronephrosis ?? Pyelonephritis IVF ABX Urology ID NIDDM new onset A1c 13 Hypertryglyceremia Endo Nutritional SOB see Pulmonary note
[2019-01-07] MEDS: Insulin Detemir 100 Units/ml Inj SC SCH (21:17)
[2019-01-08] MEDS: Insulin Lispro (humaLOG) 100 Units/ml Inj SC SCH ×4 (07:04→21:44)
[2019-01-08] MEDS: Enoxaparin 40 mg Syringe SC SCH (08:42)
[2019-01-08] MEDS: Cefepime 1 GM in Sodium Chloride 0.9% 100 ML IVPB SCH ×2 (08:43→22:18)
--- NOTE | 2019-01-08 15:56 | RAD ---
Date of service: 01/08/2019 HISTORY: renal calc localization. stent place,emt localizat COMPARISON: None available. FINDINGS: BOWEL: Normal bowel gas pattern. No hepatic or splenic enlargement. 16 mm calcification overlying lower pole right kidney. Likely renal in origin. Cannot rule out cholelithiasis.. Right ureteral stent noted. BONES: Normal. OTHER FINDINGS: None. IMPRESSION: 16 mm right upper quadrant calculus, likely lower pole right kidney. Right ureteral stent noted.
--- NOTE | 2019-01-08 16:16 | PN ---
DATE: 01/08/2019 SUBJECTIVE: This is a 43-year-old male with recent with recent uncontrolled type 2 insulin-requiring diabetes, now being followed closely for metabolic management. His glycemic levels are fluctuating but improved and the glucose levels have ranged from 144-184 and 251 mg/dL. LABORATORY DATA: His chemistry showed a BUN of 14, sodium 138, potassium 3.5, chloride 96, CO2 of 32, glucose 199 and creatinine 0.8. ASSESSMENT AND PLAN: So at this time, we will continue the basal insulin given as Levemir at 26 units subcutaneous at bedtime daily as given. We will continue the dual oral hypoglycemic therapy given as glipizide at 10 mg b.i.d. before meals and metformin given as 850 b.i.d. with meals as ordered. We will obtain serial chemistries and supplement accordingly as needed. We will follow. Rosenda Farr MD
--- NOTE | 2019-01-08 18:17 | CP.PCM.PN ---
Subjective - Date & Time of Evaluation Date of Evaluation: 01/08/19 Time of Evaluation: 22:22 - Subjective Subjective: Doing well Long d/w pt regarding medical problems Objective - Vital Signs/Intake and Output Vital Signs (last 24 hours): Temp Pulse Resp BP Pulse Ox 98.1 F 77 20 120/80 98 01/08/19 16:03 01/08/19 16:03 01/08/19 16:03 01/08/19 16:03 01/08/19 16:03 - Medications Medications: Current Medications Acetaminophen (Tylenol 325mg Tab) 650 mg PO Q4 PRN PRN Reason: Pain, moderate (4-7) Enoxaparin Sodium (Lovenox) 40 mg SC DAILY [facility]; Protocol Last Admin: 01/08/19 08:42 Dose: 40 mg Glipizide (Glucotrol) 10 mg PO BIDAC [facility] Last Admin: 01/08/19 16:51 Dose: 10 mg Cefepime HCl 1 gm/ Sodium (Chloride) 100 mls @ 100 mls/hr IVPB Q12 [facility] Last Admin: 01/08/19 08:43 Dose: 100 mls/hr Insulin Detemir (Levemir) 26 units SC HS [facility] Last Admin: 01/07/19 21:17 Dose: 26 u Insulin Human Lispro (Humalog) 0 units SC ACHS [facility]; Protocol Last Admin: 01/08/19 16:50 Dose: 2 units Metformin HCl (Glucophage) 850 mg PO BIDWM [facility] Last Admin: 01/08/19 16:51 Dose: 850 mg Tramadol HCl (Ultram) 50 mg PO Q6 PRN PRN Reason: Pain, severe (8-10) - Labs Labs: 01/07/19 05:35 01/07/19 05:35 - Respiratory Exam Respiratory Exam: NORMAL BREATHING PATTERN - Cardiovascular Exam Cardiovascular Exam: REGULAR RHYTHM - GI/Abdominal Exam GI & Abdominal Exam: Normal Bowel Sounds Assessment and Plan - Assessment and Plan (Free Text) Assessment: IV ABX TCU S/P Cystoscopy with stent Nephrolithiasis/ Hydronephrosis ?? Pyelonephritis IVF ABX Urology ID NIDDM new onset A1c 13 Hypertryglyceremia Endo Nutritional Hepatomegaly US and Labs SOB see Pulmonary note
[2019-01-08] MEDS: Insulin Detemir 100 Units/ml Inj SC SCH (22:16)
[2019-01-09] MEDS: Insulin Lispro (humaLOG) 100 Units/ml Inj SC SCH ×4 (07:05→21:01)
[2019-01-09] MEDS: Enoxaparin 40 mg Syringe SC SCH (09:00)
[2019-01-09] MEDS: Cefepime 1 GM in Sodium Chloride 0.9% 100 ML IVPB SCH ×2 (09:07→20:59)
--- NOTE | 2019-01-09 09:49 | PN ---
DATE: 01/09/2019 ENDOCRINOLOGY FOLLOWUP NOTE LOCATION: Room 713. SUBJECTIVE: This is a 43-year-old male with recent uncontrolled type 2 insulin-requiring diabetes, presenting here with right flank pain with supervening acute pyelonephritis with underlying nephrolithiasis, and is being followed closely for metabolic management. His glycemic levels are fluctuating, but improved, and the glucose values have ranged from 173 to 208 mg per dL. LABORATORY DATA: His latest chemistry showed a BUN of 14, sodium 138, potassium 3.5, chloride 96, CO2 of 32, glucose 199, and creatinine 0.8. ASSESSMENT AND PLAN: So at this time, we will continue the same basal insulin given as Levemir at 26 units subcutaneously at bedtime daily as ordered. We will continue the dual oral hypoglycemic therapy with glipizide given as 10 mg twice a day and metformin given as 850 mg twice a day as ordered. We will obtain serial chemistries and supplement accordingly as needed. We will follow. Rosenda Farr MD
[2019-01-09] MEDS: Insulin Detemir 100 Units/ml Inj SC SCH (21:01)
[2019-01-09] MEDS ORDERED: Insulin Detemir 100 Units/ml Inj SC ONE (21:18)
--- NOTE | 2019-01-09 23:23 | CP.PCM.PN ---
Subjective - Date & Time of Evaluation Date of Evaluation: 01/09/19 Time of Evaluation: 22:22 - Subjective Subjective: Above noted Objective - Vital Signs/Intake and Output Vital Signs (last 24 hours): Temp Pulse Resp BP Pulse Ox 98.1 F 89 20 121/82 95 01/09/19 20:03 01/09/19 20:03 01/09/19 20:03 01/09/19 20:03 01/09/19 20:03 - Medications Medications: Current Medications Acetaminophen (Tylenol 325mg Tab) 650 mg PO Q4 PRN PRN Reason: Pain, moderate (4-7) Enoxaparin Sodium (Lovenox) 40 mg SC DAILY [facility]; Protocol Glipizide (Glucotrol) 10 mg PO BIDAC [facility] Last Admin: 01/09/19 17:16 Dose: 10 mg Cefepime HCl 1 gm/ Sodium (Chloride) 100 mls @ 100 mls/hr IVPB Q12 [facility] Last Admin: 01/09/19 20:59 Dose: 100 mls/hr Insulin Detemir (Levemir) 26 units SC HS [facility] Last Admin: 01/09/19 21:01 Dose: Not Given Insulin Human Lispro (Humalog) 0 units SC ACHS [facility]; Protocol Last Admin: 01/09/19 21:01 Dose: Not Given Metformin HCl (Glucophage) 850 mg PO BIDWM [facility] Last Admin: 01/09/19 17:16 Dose: 850 mg Tramadol HCl (Ultram) 50 mg PO Q6 PRN PRN Reason: Pain, severe (8-10) - Labs Labs: 01/07/19 05:35 01/07/19 05:35 - Respiratory Exam Respiratory Exam: NORMAL BREATHING PATTERN - Cardiovascular Exam Cardiovascular Exam: REGULAR RHYTHM - GI/Abdominal Exam GI & Abdominal Exam: Normal Bowel Sounds Assessment and Plan - Assessment and Plan (Free Text) Assessment: IV ABX TCU S/P Cystoscopy with stent Nephrolithiasis/ Hydronephrosis ?? Pyelonephritis IVF ABX Urology ID NIDDM new onset A1c 13 Hypertryglyceremia Endo Nutritional Hepatomegaly US and Labs SOB smoker see Pulmonary note Smoking cessation
[2019-01-10] MEDS: Insulin Lispro (humaLOG) 100 Units/ml Inj SC SCH ×4 (06:54→21:52)
[2019-01-10] MEDS: Enoxaparin 40 mg Syringe SC SCH (08:49)
[2019-01-10] MEDS: Cefepime 1 GM in Sodium Chloride 0.9% 100 ML IVPB SCH ×2 (08:49→22:03)
--- NOTE | 2019-01-10 14:07 | CP.PCM.CON ---
History of Present Illness - History of Present Illness History of Present Illness: 43 year old male, with a past medical history of kidney stones, presents to the ED with right flank pain and fever x 1 week . Admitted with persistent right flank pain, fever, nausea, and poor appetite. ID was consulted for antibiotic management for possible complicated UTI He had cysto and stent placement for relief of obstruction Now transferred to TCU for cont of antibiotics Review of Systems - Review of Systems All systems: reviewed and no additional remarkable complaints except - Constitutional Constitutional: As Per HPI, Chills, Fever, Malaise - EENT Eyes: absent: As Per HPI, Blind Spots, Blurred Vision, Change in Vision, Decreased Night Vision, Diplopia, Discharge, Dry Eye, Exophthalmos, Floaters, Irritation, Itchy Eyes, Loss of Peripheral Vision, Pain, Photophobia, Requires Corrective Lenses, Sees Flashes, Spots in Vision, Tunnel Vision, Other Visual Disturbances, Loss of Vision, Other Ears: absent: As Per HPI, Decreased Hearing, Ear Discharge, Ear Pain, Tinnitus, Abnormal Hearing, Disequilibrium, Dizziness, Other Nose/Mouth/Throat: absent: As Per HPI, Epistaxis, Nasal Congestion, Nasal Discharge, Nasal Obstruction, Nasal Trauma, Nose Pain, Post Nasal Drip, Sinus Pain, Sinus Pressure, Bleeding Gums, Change in Voice, Dental Pain, Dry Mouth, Dysphagia, Halitosis, Hoarsness, Lip Swelling, Mouth Lesions, Mouth Pain, Odynophagia, Sore Throat, Throat Swelling, Tongue Swelling, Facial Pain, Neck Pain, Neck Mass, Other - Cardiovascular Cardiovascular: absent: As Per HPI, Acrocyanosis, Chest Pain, Chest Pain at Rest, Chest Pain with Activity, Claudication, Diaphoresis, Dyspnea, Dyspnea on Exertion, Edema, Irregular Heart Rhythm, Pain Radiating to Arm/Neck/Jaw, Leg Edema, Leg Ulcers, Lightheadedness, Orthopnea, Palpitations, Paroxysmal Nocturnal Dyspnea, Pedal Edema, Radiating Pain, Rapid Heart Rate, Slow Heart Rate, Syncope, Other - Respiratory Respiratory: absent: As Per HPI, Cough, Dyspnea, Hemoptysis, Dyspnea on Ex ertion, Wheezing, Snoring, Stridor, Pain on Inspiration, Chest Congestion, Excessive Mucous Production, Change in Mucous Color, Pain with Coughing, Other - Gastrointestinal Gastrointestinal: absent: As Per HPI, Abdominal Pain, Belching, Bloating, Change in Bowel Habits, Change in Stool Character, Coffee Ground Emesis, Constipation, Cramping, Diarrhea, Dyspepsia, Dysphagia, Early Satiety, Excessive Flatus, Fecal Incontinence, Heartburn, Hematemesis, Hematochezia, Loose Stools, Melena, Nausea, Odynophagia, Temesmus, Vomiting, Other - Genitourinary Genitourinary: As Per HPI - Musculoskeletal Musculoskeletal: absent: As Per HPI, Abnormal Gait, Arthralgias, Atrophy, Back Pain, Deformity, Joint Swelling, Limited Range of Motion, Loss of Height, Muscle Cramps, Muscle Weakness, Myalgias, Neck Pain, Numbness, Radiating Pain into Limb, Stiffness, Tingling, Other - Integumentary Integumentary: absent: As Per HPI, Acne, Alopecia, Bleeding Lesions, Change in Hair, Change in Nails, Change in Pigmentation, Changing Lesions, Dry Skin, Erythema, Furuncle, Hirsutism, Lesions, New Lesions, Non-Healing Lesions, Photosensitivity, Pruritus, Rash, Skin Pain, Skin Ulcer, Sores, Striae, Swelling, Unusual Bruising, Wounds, Jaundice, Other - Neurological Neurological: absent: As Per HPI, Abnormal Gait, Abnormal Hearing, Abnormal Movements, Abnormal Speech, Behavioral Changes, Burning Sensations, Confusion, Convulsions, Disequilibrium, Dizziness, Numbness, Focal Weakness, Frequent Falls, Headaches, Lack of Coordination, Loss of Vision, Memory Loss, Paresthesias, Radicular Pain, Restless Legs, Sensory Deficit, Syncope, Tingling, Tremor, Vertigo, Weakness, Other Visual Disturbances, Other - Psychiatric Psychiatric: absent: As Per HPI, Abnormal Sleep Pattern, Anhedonia, Anxiety, Auditory Hallucinations, Behavioral Changes, Change in Appetite, Change in Libido, Confusion, Depression, Difficulty Concentrating, Hallucinations, Homicidal Ideation, Hopelessness, Irritability, Memory Loss, Mood Swings, Panic Attacks, Paranoia, Suicidal Ideation, Visual Hallucinations, Tactile Hallucinations, Other - Endocrine Endocrine: absent: As Per HPI, Change in Body Appearance, Change in Libido, Cold Intolorance, Deepening of Voice, Excessive Sweating, Fatigue, Flushing, Heat Intolorance, Increase in Ring/Shoe/Hat Size, Palpitations, Polydipsia, Polyphagia, Polyuria, Other - Hematologic/Lymphatic Hematologic: absent: As Per HPI, Easy Bleeding, Easy Bruising, Lymphadenopathy, Other Past Patient History - Past Medical History & Family History Past Medical History?: Yes - Past Social History Smoking Status: Light Smoker < 10 Cigarettes Daily - CARDIAC Hx Cardiac Disorders: No - PULMONARY Hx Respiratory Disorders: No - NEUROLOGICAL Hx Neurological Disorder: No - HEENT Hx HEENT Problems: No - RENAL Hx Chronic Kidney Disease: Yes Hx Kidney Stones: Yes - ENDOCRINE/METABOLIC Hx Diabetes Mellitus Type 2: Yes (recent dx) - HEMATOLOGICAL/ONCOLOGICAL Hx Blood Disorders: No Hx AIDS: No Hx Human Immunodeficiency Virus (HIV): No - INTEGUMENTARY Hx Dermatological Problems: No - MUSCULOSKELETAL/RHEUMATOLOGICAL Hx Musculoskeletal Disorders: No Hx Falls: No - GASTROINTESTINAL Hx Gastrointestinal Disorders: No - GENITOURINARY/GYNECOLOGICAL Hx Genitourinary Disorders: No Other/Comment: Nephrolithiasis - PSYCHIATRIC Hx Psychophysiologic Disorder: No Hx Substance Use: No - SURGICAL HISTORY Hx Surgeries: No - ANESTHESIA Hx Anesthesia: No Hx Anesthesia Reactions: No Hx Malignant Hyperthermia: No Meds Allergies/Adverse Reactions: Allergies Allergy/AdvReac Type Severity Reaction Status Date / Time No Known Allergies Allergy Verified 01/01/19 14:14 - Medications Medications: Current Medications Acetaminophen (Tylenol 325mg Tab) 650 mg PO Q4 PRN PRN Reason: Pain, moderate (4-7) Enoxaparin Sodium (Lovenox) 40 mg SC DAILY [facility]; Protocol Last Admin: 01/10/19 08:49 Dose: 40 mg Glipizide (Glucotrol) 10 mg PO BIDAC [facility] Last Admin: 01/10/19 08:49 Dose: 10 mg Cefepime HCl 1 gm/ Sodium (Chloride) 100 mls @ 100 mls/hr IVPB Q12 [facility] Last Admin: 01/10/19 08:49 Dose: 100 mls/hr Insulin Detemir (Levemir) 16 units SC HS [facility] Insulin Human Lispro (Humalog) 0 units SC ACHS [facility]; Protocol Last Admin: 01/10/19 11:42 Dose: 2 units Metformin HCl (Glucophage) 850 mg PO BIDWM [facility] Last Admin: 01/10/19 08:49 Dose: 850 mg Tramadol HCl (Ultram) 50 mg PO Q6 PRN PRN Reason: Pain, severe (8-10) Physical Exam - Constitutional Appears: Chronically Ill - Head Exam Head Exam: ATRAUMATIC, NORMOCEPHALIC - Eye Exam Eye Exam: PERRL - ENT Exam ENT Exam: Mucous Membranes Dry - Neck Exam Neck exam: Negative for: Lymphadenopathy - Respiratory Exam Respiratory Exam: Decreased Breath Sounds - Cardiovascular Exam Cardiovascular Exam: REGULAR RHYTHM - GI/Abdominal Exam GI & Abdominal Exam: Diminished Bowel Sounds - Rectal Exam Rectal Exam: Deferred - Exam Exam: NORMAL INSPECTION - Extremities Exam Extremities exam: Negative for: pedal edema - Back Exam Back exam: absent: CVA tenderness (L), CVA tenderness (R) - Neurological Exam Neurological exam: Alert, CN II-XII Intact, Oriented x3, Reflexes Normal - Psychiatric Exam Psychiatric exam: Normal Mood - Skin Skin Exam: Dry Results - Vital Signs Recent Vital Signs: Last Vital Signs Temp 98.6 F 01/10/19 07:49 Pulse 94 H 01/10/19 07:49 Resp 20 01/10/19 07:49 BP 106/69 01/10/19 07:49 Pulse Ox 95 01/10/19 07:49 - Labs Result Diagrams: 01/07/19 05:35 01/07/19 05:35 Labs: Laboratory Results - last 24 hr 01/09/19 01/09/19 01/10/19 15:45 20:56 05:08 POC Glucose (mg/dL) 219 H 107 177 H 01/10/19 11:27 POC Glucose (mg/dL) 225 H Assessment & Plan (1) Atelectasis Status: Acute Priority: High (2) Diabetes mellitus Status: Acute (3) Pyelonephritis Status: Acute (4) Renal colic on right side Status: Acute (5) Sepsis Status: Acute - Assessment and Plan (Free Text) Assessment: doing well s/p stent placement to complete IV rx
--- NOTE | 2019-01-10 17:46 | PN ---
DATE: 01/10/2019 ENDO FOLLOWUP NOTE LOCATION: Room 713. SUBJECTIVE: This is a 43-year-old male with recent uncontrolled type 2 insulin-requiring diabetes, now being followed closely for metabolic management. His glycemic levels are fluctuating, but improved overnight as noted. His glucose values have ranged from 107 to 177 and 225 mg/dL. His latest chemistry showed a BUN of 14, sodium 138, potassium 3.5, chloride 96, CO2 32, glucose 199 and creatinine 0.8. So, at this time, we will modify once again his basal insulin and lower the Levemir to 16 units subcu at bedtime daily to start tonight. We will continue the glipizide given as 10 mg b.i.d. before meals as ordered and the metformin given as 850 mg b.i.d. after meals as given. We will obtain serial chemistries and supplement accordingly needed. We will follow. Rosenda Farr MD
[2019-01-10] MEDS: Insulin Detemir 100 Units/ml Inj SC SCH (22:05)
--- NOTE | 2019-01-10 22:44 | CP.PCM.PN ---
Subjective - Date & Time of Evaluation Date of Evaluation: 01/10/19 Time of Evaluation: 22:22 - Subjective Subjective: ID note appreciated Objective - Vital Signs/Intake and Output Vital Signs (last 24 hours): Temp Pulse Resp BP Pulse Ox 98.0 F 93 H 20 124/90 98 01/10/19 20:04 01/10/19 20:04 01/10/19 20:04 01/10/19 20:04 01/10/19 20:04 - Medications Medications: Current Medications Acetaminophen (Tylenol 325mg Tab) 650 mg PO Q4 PRN PRN Reason: Pain, moderate (4-7) Enoxaparin Sodium (Lovenox) 40 mg SC DAILY [facility]; Protocol Last Admin: 01/10/19 08:49 Dose: 40 mg Glipizide (Glucotrol) 10 mg PO BIDAC [facility] Last Admin: 01/10/19 16:43 Dose: 10 mg Cefepime HCl 1 gm/ Sodium (Chloride) 100 mls @ 100 mls/hr IVPB Q12 [facility] Last Admin: 01/10/19 22:03 Dose: 100 mls/hr Insulin Detemir (Levemir) 16 units SC HS [facility] Last Admin: 01/10/19 22:05 Dose: 16 u Insulin Human Lispro (Humalog) 0 units SC ACHS [facility]; Protocol Last Admin: 01/10/19 21:52 Dose: Not Given Metformin HCl (Glucophage) 850 mg PO BIDWM [facility] Last Admin: 01/10/19 16:43 Dose: 850 mg Tramadol HCl (Ultram) 50 mg PO Q6 PRN PRN Reason: Pain, severe (8-10) - Labs Labs: 01/07/19 05:35 01/07/19 05:35 - Respiratory Exam Respiratory Exam: NORMAL BREATHING PATTERN - Cardiovascular Exam Cardiovascular Exam: REGULAR RHYTHM - GI/Abdominal Exam GI & Abdominal Exam: Normal Bowel Sounds Assessment and Plan - Assessment and Plan (Free Text) Assessment: IV ABX TCU S/P Cystoscopy with stent Nephrolithiasis/ Hydronephrosis ?? Pyelonephritis IVF ABX Urology ID NIDDM new onset A1c 13 Hypertryglyceremia Endo Nutritional Hepatomegaly US and Labs SOB smoker see Pulmonary note Smoking cessation
[2019-01-11] MEDS: Insulin Lispro (humaLOG) 100 Units/ml Inj SC SCH ×4 (06:46→22:50)
[2019-01-11] MEDS: Enoxaparin 40 mg Syringe SC SCH (08:17)
[2019-01-11 08:21] LABS: BASO # 0.1 K/uL (0.0-0.2); BASO % 0.7 % (0.0-2.0); EOS % 0.5 % (0.0-4.0); HEMOGLOBIN 12.8 g/dL (12.0-18.0); LYMPH # 2.8 K/uL (1.0-4.3); LYMPH % 36.3 % (20.0-40.0); MEAN CELL VOLUME 78.8 fl (80.0-94.0); MEAN CORPUSCULAR HEMOGLOBIN 25.3 pg (27.0-31.0); MEAN CORPUSCULAR HGB CONC 32.2 g/dL (33.0-37.0); MEAN PLATELET VOLUME 8.3 fl (7.2-11.7); MONO # 0.4 K/uL (0.0-0.8); MONO % 5.7 % (0.0-10.0); NEUT # 4.4 K/uL (1.8-7.0); NEUT % 56.8 % (50.0-75.0); NRBC % 0.2 % (0.0-0.0); RBC 5.04 Mil/uL (4.40-5.90); RED CELL DISTRIBUTION WIDTH 13.6 % (11.5-14.5); WHITE BLOOD COUNT 7.7 K/uL (4.8-10.8)
[2019-01-11 09:01] LABS: ALB/GLOB RATIO 0.9 (1.0-2.1); ALBUMIN 3.6 g/dL (3.5-5.0); ALT/SGPT 68 U/L (21-72); AST/SGOT 71 U/L (17-59); BLOOD UREA NITROGEN 18 mg/dl (9-20); GFR NON-AFRICAN AMERICAN > 60
[2019-01-11] MEDS: Cefepime 1 GM in Sodium Chloride 0.9% 100 ML IVPB SCH ×2 (09:28→22:18)
--- NOTE | 2019-01-11 11:23 | CP.PCM.PN ---
Subjective - Date & Time of Evaluation Date of Evaluation: 01/11/19 Time of Evaluation: 22:22 - Subjective Subjective: Above noted Objective - Vital Signs/Intake and Output Vital Signs (last 24 hours): Temp Pulse Resp BP Pulse Ox 97.7 F 96 H 18 107/74 96 01/11/19 09:00 01/11/19 09:00 01/11/19 09:00 01/11/19 09:00 01/11/19 09:00 - Medications Medications: Current Medications Acetaminophen (Tylenol 325mg Tab) 650 mg PO Q4 PRN PRN Reason: Pain, moderate (4-7) Enoxaparin Sodium (Lovenox) 40 mg SC DAILY [facility]; Protocol Last Admin: 01/11/19 08:17 Dose: 40 mg Glipizide (Glucotrol) 10 mg PO BIDAC [facility] Last Admin: 01/11/19 08:17 Dose: 10 mg Cefepime HCl 1 gm/ Sodium (Chloride) 100 mls @ 100 mls/hr IVPB Q12 [facility]; [facility] Last Admin: 01/11/19 09:28 Dose: 100 mls/hr Insulin Detemir (Levemir) 16 units SC HS [facility] Last Admin: 01/10/19 22:05 Dose: 16 u Insulin Human Lispro (Humalog) 0 units SC ACHS [facility]; Protocol Last Admin: 01/11/19 06:46 Dose: 1 units Metformin HCl (Glucophage) 850 mg PO BIDWM [facility] Last Admin: 01/11/19 08:17 Dose: 850 mg Tramadol HCl (Ultram) 50 mg PO Q6 PRN PRN Reason: Pain, severe (8-10) - Labs Labs: 01/11/19 07:45 01/11/19 07:45 - Respiratory Exam Respiratory Exam: NORMAL BREATHING PATTERN - Cardiovascular Exam Cardiovascular Exam: REGULAR RHYTHM - GI/Abdominal Exam GI & Abdominal Exam: Normal Bowel Sounds Assessment and Plan - Assessment and Plan (Free Text) Assessment: IV ABX TCU S/P Cystoscopy with stent Nephrolithiasis/ Hydronephrosis ?? Pyelonephritis IVF ABX Urology ID NIDDM new onset A1c 13 Hypertryglyceremia Endo Nutritional Hepatomegaly US and Labs SOB smoker see Pulmonary note Smoking cessation
--- NOTE | 2019-01-11 12:44 | CP.PCM.PN ---
Subjective - Date & Time of Evaluation Date of Evaluation: 01/11/19 Time of Evaluation: 12:41 - Subjective Subjective: urology. pt seen following jj stent placement for right renal calc. kub confirms good stent position. Once pt is discharged he will come to my office to schedule lithotripsy Objective - Vital Signs/Intake and Output Vital Signs (last 24 hours): Temp Pulse Resp BP Pulse Ox 97.7 F 96 H 18 107/74 96 01/11/19 09:00 01/11/19 09:00 01/11/19 09:00 01/11/19 09:00 01/11/19 09:00 - Medications Medications: Current Medications Acetaminophen (Tylenol 325mg Tab) 650 mg PO Q4 PRN PRN Reason: Pain, moderate (4-7) Enoxaparin Sodium (Lovenox) 40 mg SC DAILY [facility]; Protocol Last Admin: 01/11/19 08:17 Dose: 40 mg Glipizide (Glucotrol) 10 mg PO BIDAC [facility] Last Admin: 01/11/19 08:17 Dose: 10 mg Cefepime HCl 1 gm/ Sodium (Chloride) 100 mls @ 100 mls/hr IVPB Q12 [facility]; Protocol Last Admin: 01/11/19 09:28 Dose: 100 mls/hr Insulin Detemir (Levemir) 16 units SC HS [facility] Last Admin: 01/10/19 22:05 Dose: 16 u Insulin Human Lispro (Humalog) 0 units SC ACHS [facility]; Protocol Last Admin: 01/11/19 12:32 Dose: 1 units Metformin HCl (Glucophage) 850 mg PO BIDWM [facility] Last Admin: 01/11/19 08:17 Dose: 850 mg Tramadol HCl (Ultram) 50 mg PO Q6 PRN PRN Reason: Pain, severe (8-10) - Labs Labs: 01/11/19 07:45 01/11/19 07:45
--- NOTE | 2019-01-11 16:29 | PN ---
DATE: 01/11/2019 ENDOCRINOLOGY FOLLOWUP NOTE LOCATION: Room 713. SUBJECTIVE: This is a 43-year-old male with recent uncontrolled type 2 insulin-requiring diabetes, presenting here with right flank pain and pyelonephritis, currently being followed closely for metabolic management because of recent hyperglycemic accelerations as noted thereof. His glucose levels have improved overnight and the glucose values have ranged from 121-155 and 184 mg/dL. LABORATORY DATA: His chemistry showed a BUN of 18, sodium 138, potassium 4.6, chloride 97, CO2 of 31, glucose 171 and creatinine 0.7. ASSESSMENT AND PLAN: So at this time, we will continue the modified basal insulin which was started last night at the lower dose of Levemir given as 16 units subcutaneous at bedtime daily as given. We will continue also the dual oral hypoglycemic therapy with glipizide given as 10 mg b.i.d. with metformin given as 850 mg b.i.d. after meals as ordered. We will obtain serial chemistries and supplement accordingly as needed. We will follow. Rosenda Farr MD
[2019-01-11] MEDS ORDERED: Cefepime 1 GM in Sodium Chloride 0.9% 100 ML IVPB SCH (17:00)
[2019-01-11] MEDS: Insulin Detemir 100 Units/ml Inj SC SCH (22:20)
[2019-01-12 04:01] VITALS: RESP 20
[2019-01-12] MEDS: Insulin Lispro (humaLOG) 100 Units/ml Inj SC SCH (06:45)
[2019-01-12] MEDS: Enoxaparin 40 mg Syringe SC SCH (09:00)
[2019-01-12 11:29] VITALS: BP 110/73; PULSE 100; TEMP 98.1; O2SAT 97
--- NOTE | 2019-01-12 15:17 | PN ---
DATE: 01/12/2019 ENDO FOLLOWUP NOTE ROOM: 713 SUBJECTIVE: This is a 43-year-old male with recent uncontrolled type 2 insulin-requiring diabetes presenting here with acute pyelonephritis and has now improved clinically and metabolically as noted thereof. His glycemic levels are much improved and the glucose values overnight have ranged from 139-159 and 187 mg/dL. His chemistry showed a BUN of 18, sodium 138, potassium 4.6, chloride 97, CO2 of 31, glucose 171, and creatinine 0.7. The patient is extremely reluctant and actually refusing to go home on basal insulin as given in the hospital. He has promised to follow with his medical doctor for ongoing medical and diabetic followup as noted. So, he will be sent home only on the combination of oral hypoglycemic therapy given as metformin at 850 mg b.i.d. and glipizide at 10 mg b.i.d. before meals as ordered. We will obtain serial chemistries and supplement accordingly as needed. We will follow. Rosenda Farr MD
== END 2019-01-12 11:05 | disposition home or self-care (01) | DRG 689 ==
LOC: H.TCU 20:55
PROVIDERS: ADMIT Family Medicine Geriatric Medicine; ATTEND Family Medicine Geriatric Medicine
DX: N13.6 Pyonephrosis (principal); Q79.1 Other congenital malformations of diaphragm; E11.22 Type 2 diabetes mellitus with diabetic chronic kidney disease; F17.210 Nicotine dependence, cigarettes, uncomplicated; N18.9 Chronic kidney disease, unspecified; Z79.4 Long term (current) use of insulin; Z87.442 Personal history of urinary calculi; R06.02 Shortness of breath; E11.65 Type 2 diabetes mellitus with hyperglycemia; N20.0 Calculus of kidney